=== PATIENT | male | born 1945 | race Caucasian/White ===

== ENCOUNTER 2017-07-15 22:42 | Inpatient (IN) ==
--- NOTE | 2017-07-15 23:15 | Emergency Department Note ---
Disposition Clinical Impression: Unresponsive, Cardiac arrest STEMI (ST elevation myocardial infarction) Qualifiers: Involved coronary artery: unspecified coronary artery Qualified Code(s): I21.3 - ST elevation (STEMI) myocardial infarction of unspecified site Disposition: Admitted As Inpatient Condition: Critical Time of Disposition: 00:31 CPR HPI - General Chief Complaint: ED Cardiac Arrest/CPR Stated Complaint: unresponsive s/p cardiac arrest Time Seen by Provider: 07/15/17 22:48 Source: EMS Nursing Notes Reviewed: Yes Vital Signs Reviewed: Yes - History of Present Illness HPI Narrative: Mr. Swift, 71-year-old male, arise from [facility]. Patient has a history of CABG approximately 3 years ago, 3 vessel stenting in November of this year. Was a previously heavy smoker but quit at the time of his CABG. Patient was in a vehicle with 3 longtime friends. He began going into cardiac arrest. They stop the car and the first bystander nearby was a physician. Patient was pulled from his seat in the vehicle onto the road side and CPR was started, EMS was called. EMS arrived; patient was in ventricular fibrillation without a pulse. Patient was intubated by EMS. ROSC achieved after seeing a round of epinephrine and 2 rounds of defibrillation. He arrives at our facility in sinus tachycardia, unresponsive. - Related Data Allergies Allergy/AdvReac Type Severity Reaction Status Date / Time Unable to Assess Allergy Unverified 07/15/17 22:44 Limitations: ROS unobtainable due to patients medical condition CPR PMH - Past Medical History Medical history: Reports: other Psychiatric history: Reports: other - Social History Smoking Status: Unknown if ever smoked Physical Exam Vital Signs Reviewed General: Patient is unresponsive, intubated. HEENT: No facial asymmetry. Head is normocephalic and atraumatic. PERRLA. Cardiovascular: Heart cortical rate with regular rhythm without clicks, rubs, gallops, or murmurs. No JVD. Vertical midsternal scar well-healed from previous CABG. Carotid, femoral, bilateral radial, posterior tibial pulses all strong and 2/4. Respiratory: ET tube in place. Symmetric chest rise with bilateral breath sounds present, equal, without crackles or rhonchi. No epigastric sounds. Neuro: GCS 3 - measured on arrival with ET tube in place and with no analgesia or sedating medications on board. Psych: Patient's affect is appropriate for situation. Course Course Narrative: Patient arrives GCS 3 with intubation. Only medication on board as epinephrine at that time. 2 placement confirmed by chest x-ray. 2 large-bore IVs placed. EKG concerning for ST elevation in the septal leads. Discussed the patient with on-call interventional cardiology, Dr. Palmer, to whom I [place] the patient's EKG. He agreed to call a code STEMI. Hypothermia protocol initiated. Patient placed on amiodarone drip. He began biting the ET tube; gave him a bolus of 20 mg etomidate as well as 30 mg rocuronium. Patient taken to Histopathologist. Vital Signs Temperature 98.8 F 07/15/17 22:44 Pulse Rate 134 07/15/17 22:44 Respiratory Rate 14 07/15/17 22:44 Blood Pressure 161/114 07/15/17 22:44 O2 Sat by Pulse Oximetry 95 07/15/17 22:44 Temperature 98.8 F 07/15/17 22:44 Pulse Rate 147 07/15/17 23:28 Respiratory Rate 19 07/16/17 01:57 Blood Pressure 84/63 07/16/17 01:57 O2 Sat by Pulse Oximetry 98 07/16/17 01:57 Oxygen Delivery Oxygen Delivery Ventilator Cardiac Arrest/CPR - Lab Data Result diagrams: 07/15/17 23:17 07/15/17 23:17 Lab Results 07/15/17 07/15/17 07/15/17 Range/Units 23:17 23:17 23:17 WBC 9.7 (4.3-11.1) K/mcL RBC 4.93 (4.19-5.50) M/mcL Hgb 13.7 (12.9-16.9) g/dL Hct 43.6 (37.5-50.1) % MCV 88.4 (83.0-100.0) fL MCH 27.8 L (28.0-33.3) pg MCHC 31.4 L (31.6-35.5) g/dL RDW 13.1 (11.5-14.5) % Plt Count 203 (140-400) K/mcL MPV 11.4 (9.4-12.4) fL Immature Gran % 1.6 (0-4) % Seg Neutrophils % 63.8 % Lymphocytes % 26.3 % Monocytes % 6.2 % Eosinophils % 1.3 % Basophils % 0.8 % Neutrophils # 6.2 (1.6-8.9) K/mcL Lymphocytes # 2.5 (0.6-4.6) K/mcL Monocytes # 0.6 (0.0-1.3) K/mcL Eosinophils # 0.1 (0.0-0.6) K/mcL Basophils # 0.1 (0.0-0.2) K/mcL PT 15.0 H (9.4-12.1) Seconds INR 1.4 APTT 38.8 H (26.0-36.0) Seconds Sodium 134 L (136-145) mEq/L Potassium 3.2 L (3.5-4.5) mEq/L Chloride 94 L (98-109) mEq/L Carbon Dioxide 14 L (19-29) mEq/L BUN 14 (8-26) mg/dL Creatinine 1.48 H (0.72-1.25) mg/dL Est GFR ( Amer) 57 L (> 60) Est GFR (Non-Af Amer) 47 L (> 60) BUN/Creatinine Ratio 9 (6-26) Glucose 739 H* (70-99) mg/dL Calculated Osmolality 314 H (280-300) Calcium 7.4 L (8.6-10.8) mg/dL Magnesium 2.1 (1.6-2.6) mg/dL Troponin I (0-0.03) ng/mL Beta-Hydroxybutyric Acd 0.17 (0.02-0.27) mmol/L 07/15/ Range/Units 23:17 WBC (4.3-11.1) K/mcL RBC (4.19-5.50) M/mcL Hgb (12.9-16.9) g/dL Hct (37.5-50.1) % MCV (83.0-100.0) fL MCH (28.0-33.3) pg MCHC (31.6-35.5) g/dL RDW (11.5-14.5) % Plt Count (140-400) K/mcL MPV (9.4-12.4) fL Immature Gran % (0-4) % Seg Neutrophils % % Lymphocytes % % Monocytes % % Eosinophils % % Basophils % % Neutrophils # (1.6-8.9) K/mcL Lymphocytes # (0.6-4.6) K/mcL Monocytes # (0.0-1.3) K/mcL Eosinophils # (0.0-0.6) K/mcL Basophils # (0.0-0.2) K/mcL PT (9.4-12.1) Seconds INR APTT (26.0-36.0) Seconds Sodium (136-145) mEq/L Potassium (3.5-4.5) mEq/L Chloride (98-109) mEq/L Carbon Dioxide (19-29) mEq/L BUN (8-26) mg/dL Creatinine (0.72-1.25) mg/dL Est GFR ( Amer) (> 60) Est GFR (Non-Af Amer) (> 60) BUN/Creatinine Ratio (6-26) Glucose (70-99) mg/dL Calculated Osmolality (280-300) Calcium (8.6-10.8) mg/dL Magnesium (1.6-2.6) mg/dL Troponin I 0.07 H* (0-0.03) ng/mL Beta-Hydroxybutyric Acd (0.02-0.27) mmol/L Critical Care Time Critical Care Time: Yes Total Critical Care Time: 40 Attestation: Critical care performed: Time is exclusive of separately billable procedures. Time includes: direct patient care, patient reassessment, coordination of patient care, interpretation of data (laboratory data, radiology data, and respiratory data), review of patient's medical records, medical consultation and documentation of patient care. Procedures included in critical care time: Procedures excluded from critical care time: Attestation Statement - Attestation Attestation: IMayur MD, personally evaluated this patient and discussed their management with the resident physician. I reviewed the resident's note and agree with the documented findings, medical decision making, and plan of care. 71-year-old male with a prior cardiac history of CABG and coronary artery stents presents to the emergency department by EMS after a cardiac arrest. It was a witnessed arrest at a football game. Patient became unresponsive and reportedly initially had a pulse and then lost his pulse and had bystander CPR initiated. EMS reports on their arrival the patient was in V. fib. He was defibrillated and developed V. tach and then defibrillated again and developed asystole. He was intubated and IV established. He received epinephrine and was defibrillated again and regained a pulse. On arrival in the emergency department the patient has a strong pulse with a regular tachycardia. Good blood pressure and exhibiting some spontaneous respirations and spontaneous movements. On exam there is good breath sounds bilaterally. Heart is tachycardic and regular. Abdomen is soft with positive bowel sounds. No pedal edema noted. Patient received an amiodarone bolus and placed on amiodarone infusion. He received etomidate 20 mg IV and rocuronium 50 mg IV. EKG showed an apparent septal STEMI. EKG was sent to the sharemilker, Dr. Palmer, and he agreed and is taking the patient to Histopathologist. A STEMI alert was activated. Patient also had icebags placed to initiate core cooling. Patient taken from the ED to the cardiac catheter lab.
[2017-07-15 23:26] LABS: Basophils # 0.1 K/mcL (0.0-0.2); Basophils % 0.8 %; Eosinophils # 0.1 K/mcL (0.0-0.6); Eosinophils % 1.3 %; Hematocrit 43.6 % (37.5-50.1); Hemoglobin 13.7 g/dL (12.9-16.9); Immature Granulocytes % 1.6 % (0-4); Lymphocytes # 2.5 K/mcL (0.6-4.6); Lymphocytes % 26.3 %; Mean Corpuscular HGB Conc 31.4 g/dL (31.6-35.5); Mean Corpuscular Hemoglobin 27.8 pg (28.0-33.3); Mean Corpuscular Volume 88.4 fL (83.0-100.0); Mean Platelet Volume 11.4 fL (9.4-12.4); Monocytes # 0.6 K/mcL (0.0-1.3); Monocytes % 6.2 %; Neutrophils # 6.2 K/mcL (1.6-8.9); Platelet Count 203 K/mcL (140-400); Red Blood Count 4.93 M/mcL (4.19-5.50); Red Cell Distribution Width 13.1 % (11.5-14.5); Segmented Neutrophils % 63.8 %
[2017-07-15] MEDS ORDERED: Verapamil 5 MG/2 ML VIAL ONE (23:27)
[2017-07-15] MEDS ORDERED: *HR* Heparin 10,000 UNIT/10 ML VIAL ONE (23:28)
[2017-07-15] MEDS ORDERED: Heparin 1,000 UNITS/500 mL NS 500 ML ONE (23:28)
[2017-07-15] MEDS ORDERED: Nitroglycerin 1,000 MCG/10 ML VIAL IV ONE (23:28)
[2017-07-15] MEDS ORDERED: 0.9 % Sodium Chloride 1,000 ML ONE (23:28)
[2017-07-15 23:31] LABS: INR 1.4
[2017-07-15 23:33] LABS: Activated Partial Thrombo Time 38.8 Seconds (26.0-36.0)
[2017-07-15 23:41] LABS: Calcium 7.4 mg/dL (8.6-10.8); Magnesium 2.1 mg/dL (1.6-2.6); Potassium 3.2 mEq/L (3.5-4.5)
--- NOTE | 2017-07-15 23:42 | Pre-Sedation Evaluation ---
Pre-sedation evaluation - Pre-sedation checklist Date of procedure: 07/15/17 Procedure: [facility] Recent Vitals: Last Vital Signs Temp 98.8 F 07/15/17 22:44 Pulse 147 07/15/17 23:28 Resp 14 07/15/17 23:28 BP 184/151 07/15/17 23:28 Pulse Ox 89 07/15/17 23:28 H&P (including ROS) documented in medical record: Yes Previous reaction to sedatives/anesthetics: No Dietary Status: unknown Possible difficult airway: No ASA Classification *see protocol: CLASS II-Mild systemic disease, E-EMERGENCY- Add to any of the above to indicate emergent Plan of Care: Pt appropriate candidate for procedure/moderate/conscious sedation , Risks/benefits of procedure/sedation discussed w/ patient/family, If not NPO; Risk of intake outweiged by necessity to perform procedure
[2017-07-15] MEDS ORDERED: 0.9 % Sodium Chloride 2,000 ML ONE (23:50)
[2017-07-15] MEDS ORDERED: *HR* Midazolam HCl 5 MG/5 ML VIAL IVP ONE (23:59)
[2017-07-15] MEDS ORDERED: *HR* FentaNYL (PF) 100 MCG/2 ML VIAL ONE (23:59)
[2017-07-16 00:05] LABS: Beta-Hydroxybutyric Acid 0.17 mmol/L (0.02-0.27)
[2017-07-16] MEDS ORDERED: Tirofiban 12.5 MG/250ML 12.5 MG/250 ML BAG ONE (00:23)
[2017-07-16] MEDS ORDERED: Furosemide 40 MG/4 ML VIAL ONE ×2 (00:26→01:10)
[2017-07-16 00:34] LABS: ABG Base Excess -14 mEq/L (-2 to 3); ABG HCO3 18 mEq/L (21-27); ABG Oxygen Saturation 85 % (95-98); ABG PCO2 62 mmHg (35-45); ABG PH 7.06 pH Units (7.32-7.45); ABG PO2 71 mmHg (85-104); ABG TCO2 19 mEq/L (20-26); Blood Gas Modality VC
[2017-07-16] MEDS ORDERED: Heparin 1,000 UNITS/500 mL NS 500 ML ONE (00:34)
[2017-07-16] MEDS ORDERED: Ondansetron 4 MG/2 ML VIAL IVP PRN (00:59)
[2017-07-16] MEDS ORDERED: Amiodarone Premix 360 MG/200 ML BAG IVC ONE (00:59)
[2017-07-16] MEDS ORDERED: D5% in Water 1,000 ML IVC PRN (01:00)
[2017-07-16] MEDS ORDERED: *HR* Dextrose 50 % in Water (Syg) 50 ML SYRINGE IVP PRN (01:00)
[2017-07-16] MEDS ORDERED: Dextrose Gel 15 GM PO PRN ×2 (01:00)
--- NOTE | 2017-07-16 01:04 | Cardiology History & Physical ---
Date of Encounter: 07/18/17 Time of Encounter: 00:00 Assessment and Plan (1) Ventricular fibrillation Current Visit: Yes Status: Acute Concerning for ischemic cause of cardiac arrest. I requested therapeutic hypothermia initiated as reportedly patient unresponsive with low GCS. Emergent LHC. Poor prognosis with prolonged CPR in the field of unknown quality. Patient was not responsive after intubation in the field. Total critical care time: 1.5 hour The assessment and plan as outlined above was discussed with the patient and/ or family members who expressed understanding and agreement. All questions were answered. (2) STEMI (ST elevation myocardial infarction) Current Visit: Yes Status: Acute Emergent LHC. The assessment and plan as outlined above was discussed with the patient and/or family members who expressed understanding and agreement. All questions were answered. Qualifiers: Involved coronary artery: unspecified coronary artery Qualified Code(s): I21.3 - ST elevation (STEMI) myocardial infarction of unspecified site History of Present Illness Chief complaint: VF arrest HPI: Mr. Swift is a 71 year old male w CAD sp 3vsl CABG with reported PCI spring 2015 [facility] with stent x 3, went unresponsive while in car, pulled out of car with veneer taping machine operator being physician and CPR initiated. Friend (works as data modeling architect) reports that patient received 16:30 minutes of CPR prior to defibrillation. VF arrest that was successfully defibrillated. EKG concerning for V1-V2 current of injury with reciprocal changes, STEMI alert activated. Past Med Surg Social Fam HX - Past Medical History Medical history: other Psychiatric history: other - Social History Smoking Status: Unknown if ever smoked Medications and Allergies Atorvastatin Calcium [Lipitor] 80 mg PO DAILY 07/16/17 [History] Clopidogrel [Plavix] 75 mg PO DAILY 07/16/17 [History] Lisinopril [Lisinopril] 2.5 mg PO DAILY 07/16/17 [History] Metoprolol XL (24 HR) Succ [Toprol XL] 25 mg PO DAILY 07/16/17 [History] 3 Allergy/AdvReac Type Severity Reaction Status Date / Time No Known Allergies Allergy Verified 07/16/17 07:15 All Systems Review: A 10-system review of systems was performed and is negative for pertinent findings except as documented above in the HPI. Results 07/18/17 03:10 07/18/17 03:10
[2017-07-16] MEDS ORDERED: *HR* Heparin 5,000 UNIT/ML VIAL IVP PRN ×2 (01:09)
[2017-07-16] MEDS ORDERED: *HR* Midazolam HCl 2 MG/2 ML VIAL ONE (01:29)
[2017-07-16] MEDS ORDERED: *HR* FentaNYL (PF) 100 MCG/2 ML VIAL ONE (01:30)
--- NOTE | 2017-07-16 01:36 | Invasive Diagnostic Lab Proc ---
Name: Simeon Swift Date of Study: 07/15/2017 Date: 1945 Ht: 72.0in Medical Record#: [id number] Age: 71 Wt: 214.95lb Gender: Male BSA: 2.2 Order #: [id number] BMI: 29.11 Physicians Procedure Physician: Joseph Palmer MD, [facility] Referring MD: Referring MD: Staff Name Position Time In Braulio Vela RT (R) Scrub 11:53 PM Renuka Aguilar RN Stars Analytical Lead 11:53 PM Paulina Ayala RN Stars Analytical Lead 11:53 PM Braulio Vela RT (R) Scrub 11:53 PM Indications Indication STEMI Cardiac arrest Procedures Performed Procedure PRQ CARD REVASC VT 1 VSL L HRT ARTERY/VENTRICLE ANGIO IABP INSERTION, PERCUTANEOUS Pre-Procedure Checklist Informed consent is complete signed and on chart. H&P is on chart. ID band is on and ID verified with patient. Patient NPO for procedure The procedure was described for the patient and questions were answered. Blood Pressure: 149/117 ECG is on chart. Plan of Care Patient will tolerate the procedure without complications. Adequate level of comfort will be maintained. Hemodynamics will remain stable Patient will recover from procedure without complications. Respiratory function will be maintained. Cardiac rhythm will remain stable. Patient temperature will be maintained. Patient and/or family have verbalized understanding of the procedure. Patient Education Intravenous Access Time IV Size Location DC'd Fluid/Drip Rate Units RN 11:55 PM 18g 1 1/4" Patent On Arrival Lt Antecubital 0.9NaCl ml/hr 11:55 PM 18g 1 1/4" Patent On Arrival Rt Hand Amiodarone 33.3 ml/hr Allergies Unable to Assess Vital Signs Time BP (mmHg) HR (bpm) O2 Sat. RR (bpm) LOC 11:55 PM 149 / 117 134 82 % 24 1 = Reflexes present/moves spontaneously 11:53 PM 149 / 117 131 82 % 15 11:58 PM 151 / 117 139 85 % 24 12:03 AM 125 / 97 129 92 % 24 12:08 AM 116 / 78 112 87 % 19 12:13 AM 104 / 70 112 86 % 13 12:18 AM 102 / 79 112 87 % 27 12:23 AM 102 / 75 123 89 % 14 12:28 AM 98 / 75 106 89 % 12 12:33 AM 115 / 86 108 89 % 14 12:38 AM 131 / 98 128 91 % 21 12:43 AM 136 / 103 131 89 % 19 12:48 AM 137 / 69 110 87 % 23 12:53 AM 98 / 78 106 87 % 15 12:54 AM 106 / 70 107 88 % 21 12:58 AM 97 / 72 119 89 % 28 01:03 AM 137 / 82 96 90 % 25 Procedural Medications Time Medication Dose Units Method Given By 11:54 PM Oxygen L/min mechanical ventilator Manager Export 11:58 PM Versed 3 mg Intravenous Renuka Aguilar RN 11:59 PM Fentanyl 50 mcg Intravenous Renuka Aguilar RN 12:04 AM Lidocaine 2% 17 ml Subcutaneous Joseph Palmer MD, FACC 12:08 AM Potassium Chloride 100 ml/hr Intravenous Paulina Ayala RN 12:12 AM Heparin 4000 units Intravenous Renuka Aguilar RN 12:26 AM Lasix 20 mg Intravenous Paulina Ayala RN 12:26 AM Aggrastat Bolus: 50 ml Intravenous Renuka Aguilar RN 12:26 AM Aggrastat 12.5mg/250ml 18 ml Intravenous Renuka Aguilar RN 12:27 AM Lasix 20 mg Intravenous Paulina Ayala RN 12:36 AM Sodium Bicarbonate 2 amps Intravenous Paulina Ayala RN 12:44 AM Versed 2 mg Intravenous Paulina Ayala RN 12:44 AM Fentanyl 25 mcg Intravenous Paulina Ayala RN 12:56 AM Plavix 600 mg ng tube Paulina Ayala RN 01:09 AM Lasix 20 mg Intravenous Paulina Ayala RN 01:10 AM Heparin 500 units/hr Intravenous Paulina Ayala RN ASA Classification: CLASS III- Severe systemic disease (i.e. prior AMI, diabetes with vascular complications, morbid obesity) Emergent Procedure: ASA score is assumed Marlen Score Preprocedure Postprocedure Activity 0- Unable to move extremities or lift head Activity 0- Unable to move extremities or lift head Circulation 1- SBP+/= 20 - 50 points of pre-anesthetic level Circulation 1- SBP+/= 20 - 50 points of pre-anesthetic level Consciousness 0- Non-responsive Consciousness 0- Non-responsive O2 Saturation 1- Needs O2 inhalation to maintain O2 saturation of 90% O2 Saturation 1- Needs O2 inhalation to maintain O2 saturation of 90% Respiratory 1- Labored or limited respiration requires airway Respiratory 1- Labored or limited respiration requires airway Total Score 3 Total Score 3 Contrast Agent: Isovue Fluoro Dose: 559 mGy Activated Clotting Time Time Seconds to Clot 12:38 AM 239 Procedure Log Time Note Enter By 11:34 PM CathStat 11:52 PM Vitals capture started with the following parameters, Patient=Adult, Interval=5 min, Initial Hiixjwgi=236 mmHg, Deflation Rate=5 mmHg, Cuff placed on Right Arm 11:53 PM Pt arrived to at 23:53 [email or web address] 11:53 PM Braulio Vela RT (R) Position: Scrub Time in: 23:53 [email or web address] 11:53 PM ZV=822 bpm, HPZZ=617/117 mmhg, SpO2=82.0 %, Resp=15 B/min 11:53 PM Renuka Aguilar RN Position: Stars Analytical Lead Time in: 23:53 [email or web address] 11:53 PM Paulina Ayala RN Position: Stars Analytical Lead Time in: 23:53 [email or web address] 11:53 PM Braulio Vela RT (R) Position: Scrub Time in: 23:53 [email or web address] 11:53 PM Patient charges- Angio tray pack, Navilyst 3mm J, Pulse Oximetry and ACIST tubing and transducer [email or web address] 11:54 PM Case Delayed No [email or web address] 11:54 PM Hair removed from procedure site in holding area using clippers. Bilateral groin prepped with Chloraprep by Renuka Aguilar RN, safety strap applied then patient was draped. Skin intact. [email or web address] 11:54 PM Physician arrived 23:54 ejohnson 11:54 PM ASA Class CLASS III- Severe systemic disease (i.e. prior AMI, diabetes with vascular complications, morbid obesity) [email or web address] 11:54 PM Meet and greet completed [email or web address] 11:54 PM Procedure start 23:54 ejohnson 11:54 PM Time: 23:54 Oxygen on at L/min per mechanical ventilator by Manager Export [email or web address] 11:55 PM Time: 23:54 Patient comfortable and pain free: Yes [email or web address] 11:55 PM Time: 23:55LOC: 1 = Reflexes present/moves spontaneously [email or web address] 11:55 PM Recorded ECG: FY=056 Condition=Condition 1 11:57 PM Pressure channel 1 zeroed. 11:58 PM BY=265 bpm, BZAE=975/117 mmhg, SpO2=85.0 %, Resp=24 B/min 11:59 PM Time: 23:58 Versed 3 mg Intravenous Given by Renuka Aguilar RN ejohnson 11:59 PM Time: 23:59 Fentanyl 50 mcg Intravenous Given by Renuka Aguilar RN [email or web address] 12:02 AM Recorded Pressure: Ao, VY=271, Condition=Condition 1 (Aorta) Ao 136/113/125 12:03 AM PG=274 bpm, JUDT=412/97 mmhg, SpO2=92.0 %, Resp=24 B/min 12:04 AM Time out performed according to hospital policy [email or web address] 12:04 AM Time: 00:04 17 ml Lidocaine 2% to right groin Subcutaneous Given by Joseph Palmer MD, [facility] [email or web address] 12:04 AM Access obtained by percutaneous puncture. 6Fr 10cm Terumo [place] sheath placed in right Femoral artery. [id number] [email or web address] 12:04 AM 5Fr FR 4 catheter inserted over the wire [facility] [email or web address] 12:04 AM SVG to the 1st OM angio performed in multiple views. [email or web address] 12:04 AM RCA angiography performed in multiple views. [email or web address] 12:05 AM Catheter removed [email or web address] 12:05 AM 5Fr IM catheter inserted over the wire [id number] [email or web address] 12:05 AM Left MICHELLE to the LAD angio performed in multiple views. [email or web address] 12:07 AM Lesion found in Proximal RCA. Pre Stenosis: 100 Pre HAL Flow: [email or web address] 12:08 AM CZ=076 bpm, LNPX=042/78 mmhg, SpO2=87.0 %, Resp=19 B/min 12:09 AM Time: 00:08 Potassium Chloride 100 ml/hr Intravenous Given by Paulina Ayala RN [email or web address] 12:12 AM Time: 00:12 Heparin 4000 units Intravenous Given by Renuka Aguilar RN [email or web address] 12:13 AM LM=142 bpm, HIYA=473/70 mmhg, SpO2=86.0 %, Resp=13 B/min 12:15 AM Catheter removed [email or web address] 12:15 AM 5Fr FL 4 catheter inserted over the wire [facility] [email or web address] 12:16 AM LCA angiography performed in multiple views. [email or web address] 12:16 AM Recorded Pressure: Ao, BF=454, Condition=Condition 1 (Aorta) Ao 87/74/80 12:18 AM IM=470 bpm, CMRU=730/79 mmhg, SpO2=87.0 %, Resp=27 B/min 12:19 AM Catheter removed [email or web address] 12:19 AM 6Fr JR 4 [place] Bright-Tip guide catheter was used to cannulate the PCI vessel successfully. reused? No [email or web address] 12:19 AM .014 [place] 190cm guide wire across target lesion- successful. reused? No [email or web address] 12:20 AM Inflation device was opened. [email or web address] 12:21 AM 3.0mm x 8mm Synergy drug-eluting stent across target lesion- successful Lot #[id number] [email or web address] 12:22 AM Stent deployed @ 16 rakel for 23 seconds [email or web address] 12:23 AM QO=790 bpm, AJVJ=489/75 mmhg, SpO2=89.0 %, Resp=14 B/min 12:24 AM Stent delivery system removed intact. [email or web address] 12:24 AM Guide wire removed intact. [email or web address] 12:24 AM Guide catheter removed intact. [email or web address] 12:25 AM 5Fr Pigtail catheter inserted over the wire DNC [email or web address] 12:26 AM Time: 00:26 Lasix 20 mg Intravenous Given by Paulina Ayala RN [email or web address] 12:26 AM Pressure channel 1 zeroed. 12:26 AM Time: 00:26 Aggrastat Bolus: 50 ml Intravenous Given by Renuka Aguilar RN Sanz pump [email or web address] 12:26 AM Recorded Pressure: LV, JN=854, Condition=Condition 1 (Left Ventricle) LV 111/15/23 12:27 AM Recorded Pressure: LV, EI=197, Condition=Condition 1 (Left Ventricle) LV 111/15/31 12:27 AM Time: 00:26 Aggrastat 12.5mg/250ml 18 ml Intravenous Given by Renuka Aguilar RN Sanz pump [email or web address] 12:27 AM Catheter selectively placed in left ventricle [email or web address] 12:27 AM Time: 00:27 Lasix 20 mg Intravenous Given by Paulina Ayala RN [email or web address] 12:28 AM Recorded Pressure: LV, KB=251, Condition=Condition 1 (Left Ventricle) LV 99/12/23 12:28 AM DZ=973 bpm, NIBP=98/75 mmhg, SpO2=89.0 %, Resp=12 B/min 12:28 AM Bolus angiogram of left Ventricle complete: 12 ml/sec for a total of 35 mls [email or web address] 12:29 AM Recorded Pressure: LV, Ao, SF=754, Condition=Condition 1 (Left Ventricle) LV 116/10/17, (Aorta) Ao 120/78/95 12:29 AM Catheter removed [email or web address] 12:30 AM Bolus angiogram of right Femoral complete: 4 ml/sec for a total of 7 mls [email or web address] 12:33 AM EI=377 bpm, VHMF=412/86 mmhg, SpO2=89.0 %, Resp=14 B/min 12:34 AM 8 Fr [place] Balloon Pump IABP catheter inserted into right Femoral artery, 50 cc, *ACC* catheter inserted 1 [email or web address] 12:36 AM Time: 00:36 Sodium Bicarbonate 2 amps Intravenous Given by Paulina Ayala RN [email or web address] 12:38 AM WV=624 bpm, DXSZ=208/98 mmhg, SpO2=91.0 %, Resp=21 B/min 12:38 AM At 00:38 the ACT was 239 seconds. [email or web address] 12:43 AM FF=046 bpm, QXVR=035/103 mmhg, SpO2=89.0 %, Resp=19 B/min 12:44 AM Time: 00:44 Versed 2 mg Intravenous Given by Paulina Ayala RN [email or web address] 12:44 AM Time: 00:44 Fentanyl 25 mcg Intravenous Given by Paulina Ayala RN [email or web address] 12:47 AM IABP Settings: 1:1 ratio [email or web address] 12:48 AM IABP Augmented pressure, mean: 103 [email or web address] 12:48 AM IABP Systemic BP: 105/77 [email or web address] 12:48 AM IABP sheath sut[facility] skin [email or web address] 12:48 AM AI=359 bpm, PQPY=214/69 mmhg, SpO2=87.0 %, Resp=23 B/min 12:53 AM BJ=144 bpm, NIBP=98/78 mmhg, SpO2=87.0 %, Resp=15 B/min 12:53 AM Procedure completed at 00:53 [email or web address] 12[facility]53 AM Sign out completed: Radiation Dose 558.96 mGy Fluoro Time: 10.8 Isovue 370 - 200ml contrast ml given by Joseph Palmer MD, [facility]. Complications: NoneCardiac Rehab Consult needed: YesConfirmed administered medications: Yes [email or web address] 12:53 AM Isovue 370 - 200ml,1 Bottle(s) used. [email or web address] 12:53 AM Sheath left in place to be pulled on floor/holding areaV+Pad [email or web address] 12:53 AM Estimated Blood Loss: minimal [email or web address] 12:54 AM Post Blood Pressure 98/78 [email or web address] 12:54 AM NIBP STAT measurement started. 12:54 AM 00:54 Post Pulses Bilateral DP & PT 1+ [email or web address] 12:54 AM Information taught Cardiac Cath and PCI [email or web address] 12:54 AM RH=504 bpm, EHUG=299/70 mmhg, SpO2=88.0 %, Resp=21 B/min 12:54 AM Education needs Procedure, Plan of Care, and Disease Process [email or web address] 12:54 AM Learning barriers :None [email or web address] 12:54 AM Education Methods Verbal [email or web address] 12:54 AM Education evaluation Unable to do return demonstration [email or web address] 12:55 AM Site status No bleeding/hematoma - Rt Groin as reported by Braulio Vlea RT (R) at 00:54 [email or web address] 12:55 AM Opsite applied [email or web address] 12:55 AM Delay to floor No [email or web address] 12:55 AM Family placed in consult room. [email or web address] 12:55 AM Complications: None [email or web address] 12:55 AM Fluoro Time: 10.8 [email or web address] 12:55 AM Radiation Dose 558.96 mGy [email or web address] 12:57 AM Time: 00:56 Plavix 600 mg ng tube Given by Paulina Ayala RN [email or web address] 12:58 AM ID=589 bpm, NIBP=97/72 mmhg, SpO2=89.0 %, Resp=28 B/min 01:03 AM HR=96 bpm, MSAJ=461/82 mmhg, SpO2=90.0 %, Resp=25 B/min 01:10 AM Time: 01:09 Lasix 20 mg Intravenous Given by Paulina Ayala RN [email or web address] 01:10 AM Time: 01:10 Heparin 500 units/hr Intravenous Given by Paulina Ayala RN Sanz pump [email or web address] 01:11 AM Report given to Marion FISHER Pt taken to ICU Room #11. 01:11 [email or web address] 01:20 AM Patient out of room: 01:23 [email or web address] Complications Complication None None Hemodynamics Pressures Site Systolic/A Wave Diastolic/V Wave Mean AO 136 113 125 AO 87 74 80 LV 111 15 23 LV 111 15 31 LV 99 12 23 LV 116 10 17 AO 120 78 95 Post Procedure Information Blood Pressure: 98/78 mmHg Post procedural instructions were not given Site Checks Time Location Status Staff Sheath In? Note 12:54 AM Rt Groin No bleeding/hematoma Braulio Vela RT (R) Pulses Time Site Pre-Procedure Post-Procedure Note 07/15/2017 11:56:00 PM Bilateral DP 2+ 2+ 12:54:00 AM Bilateral PT 1+ 1+ Updated by RT Chan(R) on 07/16/2017 1:28:48 AM electronically signed on 07/16/2017 1:29:27 AM with status of Final
[2017-07-16] MEDS ORDERED: *HR* Phenylephrine 10 MG/ML VIAL ONE ×2 (01:48→01:50)
[2017-07-16] MEDS: Norepinephrine 4 MG in D5% in Water 250 ML IVC SCH ×3 (02:00→11:50)
--- NOTE | 2017-07-16 02:12 | Event Note ---
Date of Encounter: 07/16/17 Time of Encounter: 02:30 - Cardiology Event Note Patient critically ill sp PCI critically stenosed SVG OM with collaterals to the PDA. EF 10-15% - cardiogenic shock. Full ventilator support for hypoxic respiratory failure. IABP placed. Will consider transfer to tertiary center for Impella/LVAD.
[2017-07-16] MEDS ORDERED: Tirofiban 12.5 MG/250ML 12.5 MG/250 ML BAG IVC SCH (02:15)
[2017-07-16 02:29] LABS: Hematocrit 48.9 % (37.5-50.1); Mean Corpuscular HGB Conc 31.9 g/dL (31.6-35.5); Mean Corpuscular Hemoglobin 27.8 pg (28.0-33.3); Mean Corpuscular Volume 87.2 fL (83.0-100.0); Mean Platelet Volume 11.2 fL (9.4-12.4); Platelet Count 303 K/mcL (140-400); Red Blood Count 5.61 M/mcL (4.19-5.50); Red Cell Distribution Width 13.2 % (11.5-14.5)
[2017-07-16 02:30] LABS: Hemoglobin 15.6 g/dL (12.9-16.9)
[2017-07-16 02:35] LABS: INR 1.2; Prothrombin Time 13.3 Seconds (9.4-12.1)
[2017-07-16 02:41] LABS: Activated Partial Thrombo Time 90.4 Seconds (26.0-36.0)
[2017-07-16 02:41] LABS: VBG HCO3 26 mEq/L (21-27); VBG PCO2 90 mmHg (41-51); VBG PH 7.06 pH Units (7.32-7.42); VBG PO2 41 mmHg (25-50)
[2017-07-16] MEDS ORDERED: *HR* Meperidine 25 MG/ML SYRINGE IVP PRN (02:42)
[2017-07-16 02:46] LABS: Lymphocytes # 4.1 K/mcL (0.6-4.6); Monocytes # 2.9 K/mcL (0.0-1.3); Platelet Estimate Normal (Normal)
[2017-07-16 03:02] LABS: ABG Base Excess -8 mEq/L (-2 to 3); ABG HCO3 20 mEq/L (21-27); ABG Oxygen Saturation 82 % (95-98); ABG PCO2 51 mmHg (35-45); ABG PH 7.21 pH Units (7.32-7.45); ABG PO2 56 mmHg (85-104); ABG TCO2 22 mEq/L (20-26); Blood Gas Modality VC; Blood Gas PEEP 15 cm H2O; Blood Gas Respiration Rate 14; Blood Gas VT 550 cc
[2017-07-16] MEDS: Phenylephrine 10 MG in D5% in Water 250 ML IVC SCH ×2 (03:15→08:17)
--- NOTE | 2017-07-16 03:58 | Internal Medicine Consult Note ---
Date of Encounter: 07/16/17 Time of Encounter: 03:53 - Assessment and Plan (1) Cardiogenic shock Current Visit: Yes Status: Acute Assessment and plan: Patient started on 3 pressors. Continue with dopamine levothyroid and phenylephrine. Titrate to maintain map above 65. IABP managed by cardiology. (2) Hyperglycemia Current Visit: Yes Status: Acute Assessment and plan: Blood glucose 739 on presentation. I will start insulin drip per protocol. (3) STEMI (ST elevation myocardial infarction) Current Visit: Yes Status: Acute Assessment and plan: Status post PCI with stent placement. Undergoing hypothermia protocol. Management per cardiology. Qualifiers: Involved coronary artery: unspecified coronary artery Qualified Code(s): I21.3 - ST elevation (STEMI) myocardial infarction of unspecified site (4) Acute respiratory failure with hypoxia Current Visit: Yes Status: Acute Assessment and plan: Continue ventilator support with AC TV 550ml, PEEP 12. FiO2 100%. I will add paralytic agent to facilitate ventilation. Repeat chest x-ray this morning to evaluate for pulmonary edema, possible hemothorax or pneumothorax given recent CPR and any other possible complications. Repeat ABG. Prior ABG shows combined metabolic and respiratory acidosis improved. The high probability of emergent and significant clinical decompensation with potential impairment of organ function including cardiovascular and respiratory systems required my full attention and presence at the bedside. I spent 40 minutes of critical care time which involved decision making of high complexity to assess, manipulate, and support vital organ system, in order to prevent further life threatening deterioration of the patient's condition. The critical care time was spent in the patient's room and/or its close proximity and involved obtaining updated history and examining the patient, reviewing EKGs, imaging studies and laboratory data, ordering medications and laboratory studies , and reevaluating for clinical response. The time took to perform any procedures was not included in the critical care time quoted above and is billed separately. Internal Medicine - CN: HPI - Data of Consult Patient: new to practice Consult date: 07/16/17 Requesting Physician: Joseph Palmer MD - Consult Narrative Reason for consult: Acute respiratory failure History of present illness: Mr. Swift is a 71 year old male with past medical history significant for coronary artery disease who was brought to the hospital by EMS after having suffered a V. fib cardiac arrest in the field. He was resuscitated by bystanders. He was found to be in ventricular fibrillation EMS arrived and was shocked. In the ED he was noted to have ST elevations in the septal leads. He was taken to [facility] and had a stent placed. He was brought to the ICU intubated started on hypothermia protocol. We will consulted for respiratory failure with profound hypoxemia. He cannot provide any further history, review of systems, family history, social history cannot be obtained due to sedation, patient being intubated. Past Med Surg Social Fam HX - Past Medical History Medical history: other Psychiatric history: other - Social History Smoking Status: Unknown if ever smoked Internal Medicine - CN: Meds 3 Allergy/AdvReac Type Severity Reaction Status Date / Time Unable to Assess Allergy Unverified 07/15/17 22:44 Internal Medicine - CN: Exam - Constitutional Vitals: Temp Pulse Resp BP Pulse Ox 98.8 F 124 24 85/64 87 07/15/17 22:44 07/16/17 03:33 07/16/17 03:33 07/16/17 03:33 07/16/17 03:33 Exam: Intubated, sedated, shivering profusely - Neck Neck exam general surgery: Present: normal inspection, supple, trachea midline - Respiratory Respiratory exam: Present: CTAB. Absent: wheezes - Cardiovascular Cardiovascular exam IM: Present: +S1, +S2, tachycardia. Absent: systolic murmur - GI/Abdominal GI/Abdominal exam IM: Present: soft, no peritoneal signs. Absent: distended - Skin Skin exam IM: Present: dry. Absent: abrasion, erythema Internal Medicine - CN: Reslt - Labs CBC & Chem 7: 07/16/17 04:25 07/16/17 04:25 Labs: Short CBC 07/16/17 Range/Units 02:20 WBC 29.0 H D (4.3-11.1) K/mcL Hgb 15.6 D (12.9-16.9) g/dL Hct 48.9 (37.5-50.1) % Plt Count 303 (140-400) K/mcL Neutrophils # 22.0 H (1.6-8.9) K/mcL - ABG Interpretation ABG results: ABG ABG pH 7.21 pH Units (7.32-7.45) L D 07/16/17 02:57 ABG pCO2 51 mmHg (35-45) H 07/16/17 02:57 ABG pO2 56 mmHg (85-104) L 07/16/17 02:57 ABG O2 Saturation 82 % (95-98) L 07/16/17 02:57 PT/INR, D-dimer PT 13.3 Seconds (9.4-12.1) H 07/16/17 02:20 - Impressions Chest x-ray personally reviewed, ET tube adequately positioned. Cardiomegaly. Pulmonary edema. No infiltrate. Consult Discharge Plan - Plan Referrals: NONE,PCP [Primary Care Provider] -
[2017-07-16 04:39] LABS: Basophils # 0.1 K/mcL (0.0-0.2); Basophils % 0.3 %; Eosinophils % 0.1 %; Hematocrit 45.6 % (37.5-50.1); Hemoglobin 14.8 g/dL (12.9-16.9); Immature Granulocytes % 0.8 % (0-4); Lymphocytes # 1.4 K/mcL (0.6-4.6); Mean Corpuscular HGB Conc 32.5 g/dL (31.6-35.5); Mean Corpuscular Hemoglobin 27.8 pg (28.0-33.3); Mean Corpuscular Volume 85.6 fL (83.0-100.0); Mean Platelet Volume 11.3 fL (9.4-12.4); Monocytes # 0.6 K/mcL (0.0-1.3); Monocytes % 3.2 %; Neutrophils # 17.8 K/mcL (1.6-8.9); Platelet Count 277 K/mcL (140-400); Red Blood Count 5.33 M/mcL (4.19-5.50); Red Cell Distribution Width 13.2 % (11.5-14.5); Segmented Neutrophils % 88.6 %
[2017-07-16] MEDS: Vecuronium 50 MG in 0.9 % Sodium Chloride 150 ML IVC SCH ×2 (04:42→08:18)
[2017-07-16 04:53] LABS: Albumin 3.4 g/dL (3.5-5.0); Albumin/Globulin Ratio 1.1 (1.1-2.2); Bilirubin,Direct 0.2 mg/dL (0.0-0.5); Bilirubin,Indirect 0.3 mg/dL (0.0-1.2); Bilirubin,Total 0.5 mg/dL (0.2-1.2); Calcium 7.8 mg/dL (8.6-10.8); Globulin 3.2 g/dL (2.4-3.5); Magnesium 1.9 mg/dL (1.6-2.6); Potassium 3.7 mEq/L (3.5-4.5); Total Protein 6.6 g/dL (6.0-8.3)
[2017-07-16] MEDS: FentaNYL (PF) 1,000 MCG in 0.9 % Sodium Chloride 80 ML IVC SCH ×2 (05:32→20:45)
[2017-07-16 06:12] LABS: ABG Base Excess -4 mEq/L (-2 to 3); ABG HCO3 22 mEq/L (21-27); ABG Oxygen Saturation 80 % (95-98); ABG PCO2 41 mmHg (35-45); ABG PH 7.34 pH Units (7.32-7.45); ABG PO2 47 mmHg (85-104); ABG TCO2 23 mEq/L (20-26); Blood Gas Modality VC; Blood Gas PEEP 15 cm H2O; Blood Gas Respiration Rate 14; Blood Gas VT 550 cc
[2017-07-16] MEDS: Insulin LISPRO 300 UNITS/3 ML VIAL SQ SCH ×4 (06:30→23:56)
[2017-07-16] MEDS: Famotidine 20 MG/2 ML VIAL IVP SCH ×2 (06:30→18:27)
[2017-07-16] MEDS: Heparin 25,000 UNIT/500 ML D5W 25,000 UNIT/500 ML MLS IVC SCH (08:25)
--- NOTE | 2017-07-16 08:49 | Pulmonology Consult Note ---
<DrewTim de la rosa M - Last Filed: 07/16/17 11:13> Date of Encounter: 07/16/17 Medications and Allergies Atorvastatin Calcium [Lipitor] 80 mg PO DAILY 07/16/17 [History] Clopidogrel [Plavix] 75 mg PO DAILY 07/16/17 [History] Lisinopril [Lisinopril] 2.5 mg PO DAILY 07/16/17 [History] Metoprolol XL (24 HR) Succ [Toprol XL] 25 mg PO DAILY 07/16/17 [History] 3 Allergy/AdvReac Type Severity Reaction Status Date / Time No Known Allergies Allergy Verified 07/16/17 07:15 All Systems: A 10-system review of systems was performed and is negative for pertinent findings except as documented above in the HPI. Physical Examination Vital Signs: Vital Signs, Last 4 Hours Temp Pulse Resp BP Pulse Ox 07/16/17 10:00 103 26 99/65 96 07/16/17 09:15 21 99 07/16/17 09:00 85 26 85/60 96 07/16/17 08:00 99.5 F 93 26 66/54 96 07/16/17 07:34 25 94 Ventilator Settings Ventilator Settings: Ventilator Settings, Last 8 Hours Ventilator Mode A/C Ventilator Mode A/C Ventilator Mode A/C Ventilator Mode A/C Ventilator Mode A/C Ventilator Mode VC+ Ventilator Mode VC+ Ventilator Mode VC+ Ventilator Mode VC+ Ventilator Mode VC+ Ventilator Tidal Volume 550 Setting Ventilator Tidal Volume 550 Setting Ventilator Tidal Volume 550 Setting Ventilator Tidal Volume 550 Setting Ventilator Tidal Volume 550 Setting Ventilator Tidal Volume 550 Setting Ventilator Tidal Volume 550 Setting Ventilator Tidal Volume 550 Setting Ventilator Tidal Volume 550 Setting Ventilator Tidal Volume 550 Setting Ventilator Respiratory Rate 14 Setting Ventilator Respiratory Rate 14 Setting Ventilator Respiratory Rate 14 Setting Ventilator Respiratory Rate 14 Setting Ventilator Respiratory Rate 14 Setting Ventilator Respiratory Rate 14 Setting Ventilator Respiratory Rate 14 Setting Ventilator Respiratory Rate 14 Setting Ventilator Respiratory Rate 14 Setting Ventilator Respiratory Rate 14 Setting Actual Respiratory Rate 26 Actual Respiratory Rate 23 Actual Respiratory Rate 26 Actual Respiratory Rate 26 Actual Respiratory Rate 25 Actual Respiratory Rate 25 Actual Respiratory Rate 23 Positive End Expiratory 14 Pressure Positive End Expiratory 14 Pressure Positive End Expiratory 14 Pressure Positive End Expiratory 14 Pressure Positive End Expiratory 15 Pressure Positive End Expiratory 15 Pressure Positive End Expiratory 15 Pressure Positive End Expiratory 15 Pressure Positive End Expiratory 15 Pressure Positive End Expiratory 15 Pressure Peak Inspiratory Airway 30 Pressure Peak Inspiratory Airway 21 Pressure Peak Inspiratory Airway 23 Pressure Peak Inspiratory Airway 21 Pressure Peak Inspiratory Airway 22 Pressure Peak Inspiratory Airway 25 Pressure Results - Laboratory Findings CBC and BMP: 07/16/17 04:25 07/16/17 04:25 ABG ABG pH 7.38 pH Units (7.32-7.45) 07/16/17 10:16 ABG pCO2 38 mmHg (35-45) 07/16/17 10:16 ABG pO2 60 mmHg (85-104) L 07/16/17 10:16 ABG O2 Saturation 90 % (95-98) L 07/16/17 10:16 PT/INR, D-dimer PT 13.3 Seconds (9.4-12.1) H 07/16/17 02:20 Abnormal lab findings: Abnormal lab results WBC 20.1 K/mcL (4.3-11.1) H 07/16/17 04:25 MCH 27.8 pg (28.0-33.3) L 07/16/17 04:25 Band Neutrophils % 20.0 % (0-4) H 07/16/17 02:20 Neutrophils # 17.8 K/mcL (1.6-8.9) H 07/16/17 04:25 PT 13.3 Seconds (9.4-12.1) H 07/16/17 02:20 APTT 40.1 Seconds (26.0-36.0) H D 07/16/17 06:40 ABG pO2 60 mmHg (85-104) L 07/16/17 10:16 ABG O2 Saturation 90 % (95-98) L 07/16/17 10:16 VBG pH 7.06 pH Units (7.32-7.42) L* 07/16/17 02:33 VBG pCO2 90 mmHg (41-51) H* 07/16/17 02:33 Creatinine 1.46 mg/dL (0.72-1.25) H 07/16/17 04:25 Est GFR ( Amer) 58 (> 60) L 07/16/17 04:25 Est GFR (Non-Af Amer) 48 (> 60) L 07/16/17 04:25 Glucose 238 mg/dL (70-99) H 07/16/17 04:25 POC Glucose 221 (58-89) H 07/16/17 04:14 Calcium 7.8 mg/dL (8.6-10.8) L 07/16/17 04:25 AST 133 Units/L (5-34) H 07/16/17 04:25 ALT 97 Units/L (0-55) H 07/16/17 04:25 Troponin I 0.07 ng/mL (0-0.03) H* 07/15/17 23:17 Albumin 3.4 g/dL (3.5-5.0) L 07/16/17 04:25 - Clinical Findings Intake & Output: Intake & Output 07/15/17 07/16/17 07/16/17 23:59 07:59 15:59 Intake Total 343 / 343 187 / 187 Output Total 2200 / 2200 380 / 380 Balance -1857 / -1857 -193 / -193 Weight 94.7 kg Consult Discharge Plan - Plan Referrals: NONE,PCP [Primary Care Provider] - - Attending Attestation I examined this patient and my medical decision-making was reviewed with the Resident Physician. I agree with the documented findings, disposition and treatment plan as described except to the extent set forth below. Patient seen and examined. Labs, radiology, chart personally reviewed. Agree with resident's history and physical, assessment, plan with following comments: B[employer]TALK ARCHITECT: Patient sedated and respond to stimuli, I have discussed with the nurse earlier this morning regarding hypothermia and I was told patient is following commands with no neurological deficit and he was out the time window to achieve optimal body temperature and for that reason hypothermia was discontinued. Pulmonary: Patient is requiring significant PEEP and FiO2 and slowly lowered FiO2 and PEEP. Patient is in cardiogenic pulmonary edema and diuresis is extremely important as much as blood pressure tolerates. Repeated ABG was done and we will monitor. Patient will need to be on bronchodilators. Cardiovascular: Patient is in cardiogenic shock and management by stonemason. GI: Nutrition per dietary and GI prophylaxis per routine Heme: DVT prophylaxis per routine ID: No obvious source of infection Renal; urine out put and renal funtion reviewed. Monitor kidney function for acute kidney injury Endorcine: blood glucose is monitored Lines: all lines checked and no evidence of infections Skin: skin care to prevent pressure ulcers per nursing routine care Patient is extremely sick and prognosis poor. I spent 45 min of Critical Care time with this patient. It involved decision making of high complexity to assess, manipulate, and support vital organ system failure and/or to prevent further life threatening deterioration of the patient' s condition. The time involved in the performance of separately reportable procedures was not counted toward critical care time. <Kyle Mcginnis - Last Filed: 07/16/17 15:03> Date of Encounter: 07/16/17 Time of Encounter: 07:00 Assessment and Plan (1) Acute respiratory failure with hypoxia Current Visit: Yes Status: Acute - Intubated prior to arrival to ED and pO2 on ABG was noted to be as low as 47. - Likely secondary to cardiogenic pulmonary edema. - Continue diuresis with IV Lasix. - Continue mechanical ventilation support. - Continue close monitoring. (2) Cardiogenic shock Current Visit: Yes Status: Acute - Significant hypotension with BP as low as 62/30 and heart cath found EF 10-15% . - IABP in place and cardiology on board. - Continue dopamine and norepinephrine for pressure support. (3) STEMI (ST elevation myocardial infarction) Current Visit: Yes Status: Acute - EKG in ED showed ST elevations in V1 & V2 with ST depression in V3, V4 and T- wave inversion in V4, V5, V6. - Status post emergent cardiac cath. - Continue aspirin, Plavix, Crestor, heparin drip. Qualifiers: Involved coronary artery: unspecified coronary artery Qualified Code(s): I21.3 - ST elevation (STEMI) myocardial infarction of unspecified site (4) Ventricular fibrillation Current Visit: Yes Status: Acute - V-fib was noted per EMS arrived to the scene of cardiac arrest and patient was successfully defibrillated. (5) Cardiac arrest Current Visit: Yes Status: Acute - Cardiac arrest received CPR and ROSC prior to arrival to ED. History of Present Illness Consult date: 07/16/17 Requesting physician: Joseph Palmer Reason for consult: other (Respiratory failure/cardiogenic shock) Chief complaint: Cardiac arrest/STEMI History of present illness: Mr. Swift is a 71 yo male with PMH of CAD s/p CABG 3 years ago and 3 vessels stented in November 2016. Patient was admitted on 07/16/17 for cardiac arrest and STEMI and critical care/pulmonology is consulted for acute respiratory failure and cardiogenic shock. Patient was seen and examined this morning. Patient is sedated and intubated and no family member at bedside. Therefore much of history was obtained from review of medical records. Per ED note, patient had cardiac arrest while in the car and CPR was initiated by physician nearby at the scene. Patient was found to have V-fib without a pulse upon EMS arrival. Patient was intubated by EMS and ROSC was achieved after one round of epinephrine and two rounds of defibrillation. Patient was found to be unresponsive upon arrival to [facility] ED and EKG suggested STEMI. Patient got emergent cardiac cath which found critically stenosed SVG OM with collaterals to the PDA and EF 10-15% consistent with cardiogenic shock. IABP was placed and patient was put on hypothermia protocol. Patient was on 3 pressors (norepinephrine, dopamine and phenylephrine ) but weaned down to norepinephrine only this morning. Past Med Surg Social Fam HX - Past Medical History Medical history: coronary artery disease Psychiatric history: other - Past Surgical History Surgical History: angioplasty/stent, coronary bypass (CABG) - Social History Smoking Status: Former smoker ROS unobtainable: due to endotracheal tube, due to mental status Physical Examination Vital Signs: Vital Signs, Last 4 Hours Temp Pulse Resp BP Pulse Ox 07/16/17 08:00 99.5 F 93 26 66/54 96 07/16/17 07:34 25 94 07/16/17 07:00 96 26 100/57 92 07/16/17 06:00 97.3 F L 100 24 117/91 87 07/16/17 05:39 25 72/58 91 07/16/17 05:00 97.0 F L 90 20 83/67 90 General appearance: other (Sedated and intubated) Eyes: nonicteric ENT: other (Intubated) Neck: supple Effort: normal Inspection: normal Auscultation: bilateral: clear Cardiovascular: regular rate and rhythm Gastrointestinal: normoactive bowel sounds, soft, non-distended Integumentary: normal Extremities: no edema, cool Ventilator Settings Ventilator Settings: Ventilator Settings, Last 8 Hours Ventilator Mode A/C Ventilator Mode VC+ Ventilator Mode VC+ Ventilator Mode VC+ Ventilator Mode VC+ Ventilator Mode VC+ Ventilator Mode VC+ Ventilator Mode VC+ Ventilator Mode VC+ Ventilator Tidal Volume 550 Setting Ventilator Tidal Volume 550 Setting Ventilator Tidal Volume 550 Setting Ventilator Tidal Volume 550 Setting Ventilator Tidal Volume 550 Setting Ventilator Tidal Volume 550 Setting Ventilator Tidal Volume 550 Setting Ventilator Tidal Volume 550 Setting Ventilator Tidal Volume 550 Setting Ventilator Respiratory Rate 14 Setting Ventilator Respiratory Rate 14 Setting Ventilator Respiratory Rate 14 Setting Ventilator Respiratory Rate 14 Setting Ventilator Respiratory Rate 14 Setting Ventilator Respiratory Rate 14 Setting Ventilator Respiratory Rate 14 Setting Ventilator Respiratory Rate 14 Setting Ventilator Respiratory Rate 14 Setting Actual Respiratory Rate 26 Actual Respiratory Rate 25 Actual Respiratory Rate 25 Actual Respiratory Rate 23 Actual Respiratory Rate 19 Positive End Expiratory 15 Pressure Positive End Expiratory 15 Pressure Positive End Expiratory 15 Pressure Positive End Expiratory 15 Pressure Positive End Expiratory 15 Pressure Positive End Expiratory 15 Pressure Positive End Expiratory 15 Pressure Positive End Expiratory 15 Pressure Positive End Expiratory 12 Pressure Positive End Expiratory 12 Pressure Peak Inspiratory Airway 21 Pressure Peak Inspiratory Airway 23 Pressure Peak Inspiratory Airway 21 Pressure Peak Inspiratory Airway 22 Pressure Peak Inspiratory Airway 25 Pressure Peak Inspiratory Airway 18 Pressure Peak Inspiratory Airway 20 Pressure Results - Laboratory Findings CBC and BMP: 07/16/17 04:25 07/16/17 04:25 ABG ABG pH 7.34 pH Units (7.32-7.45) D 07/16/17 06:07 ABG pCO2 41 mmHg (35-45) 07/16/17 06:07 ABG pO2 47 mmHg (85-104) L* 07/16/17 06:07 ABG O2 Saturation 80 % (95-98) L 07/16/17 06:07 PT/INR, D-dimer PT 13.3 Seconds (9.4-12.1) H 07/16/17 02:20 Abnormal lab findings: Abnormal lab results WBC 20.1 K/mcL (4.3-11.1) H 07/16/17 04:25 MCH 27.8 pg (28.0-33.3) L 07/16/17 04:25 Band Neutrophils % 20.0 % (0-4) H 07/16/17 02:20 Neutrophils # 17.8 K/mcL (1.6-8.9) H 07/16/17 04:25 PT 13.3 Seconds (9.4-12.1) H 07/16/17 02:20 APTT 40.1 Seconds (26.0-36.0) H D 07/16/17 06:40 ABG pO2 47 mmHg (85-104) L* 07/16/17 06:07 ABG O2 Saturation 80 % (95-98) L 07/16/17 06:07 ABG Base Excess -4 mEq/L (-2 to 3) L 07/16/17 06:07 VBG pH 7.06 pH Units (7.32-7.42) L* 07/16/17 02:33 VBG pCO2 90 mmHg (41-51) H* 07/16/17 02:33 Creatinine 1.46 mg/dL (0.72-1.25) H 07/16/17 04:25 Est GFR ( Amer) 58 (> 60) L 07/16/17 04:25 Est GFR (Non-Af Amer) 48 (> 60) L 07/16/17 04:25 Glucose 238 mg/dL (70-99) H 07/16/17 04:25 POC Glucose 221 (58-89) H 07/16/17 04:14 Calcium 7.8 mg/dL (8.6-10.8) L 07/16/17 04:25 AST 133 Units/L (5-34) H 07/16/17 04:25 ALT 97 Units/L (0-55) H 07/16/17 04:25 Troponin I 0.07 ng/mL (0-0.03) H* 07/15/17 23:17 Albumin 3.4 g/dL (3.5-5.0) L 07/16/17 04:25 - Diagnostic Findings Chest x-ray: report reviewed, image reviewed - Clinical Findings Intake & Output: Intake & Output 07/15/17 07/16/17 07/16/17 23:59 07:59 15:59 Intake Total 343 / 343 187 / 187 Output Total 2200 / 2200 380 / 380 Balance -1857 / -1857 -193 / -193 Weight 94.7 kg
[2017-07-16] MEDS: Furosemide 40 MG/4 ML VIAL IVP SCH ×2 (08:53→20:44)
[2017-07-16] MEDS ORDERED: Aspirin 81 MG TAB.CHEW PO SCH (09:00)
[2017-07-16] MEDS: Dexmedetomidine HCl 400 MCG/100 ML MLS IVC SCH ×2 (09:31→20:39)
[2017-07-16 10:20] LABS: ABG Base Excess -2 mEq/L (-2 to 3); ABG HCO3 23 mEq/L (21-27); ABG Oxygen Saturation 90 % (95-98); ABG PCO2 38 mmHg (35-45); ABG PH 7.38 pH Units (7.32-7.45); ABG PO2 60 mmHg (85-104); ABG TCO2 24 mEq/L (20-26); Blood Gas Modality ASSIST CONTROL; Blood Gas PEEP 14 cm H2O; Blood Gas Respiration Rate 14; Blood Gas VT 550 cc
[2017-07-16] MEDS: Aspirin 81 MG TAB.CHEW PO SCH (11:45)
--- NOTE | 2017-07-16 12:00 | Cardiology Progress Note ---
Date of Encounter: 07/16/17 Time of Encounter: 12:15 Assessment and Plan (1) STEMI (ST elevation myocardial infarction) Current Visit: Yes Status: Acute 1. STEMI - post PCI with CHARLES SVG-OM1, patent FUNES to LAD, severe stenosis proximal D1 with small distal distribution, will DC aggrastat, continue heparin , plavix, asprin. 2. Cardiogenic Shock, - on dopamine and Levophed, IABP at 1:1, heart rate low 100s, MAP improved with switch to 1:2, will reassess if heart rate less than 90 , continue to titrate pressors as needed, add dig .5 mg IV x 1. monitor heart rate response. Reviewed cath film and echo, LV severley impaired, EF 10%. Overall prognosis is dismal. Discussed with family at bedside, they understand and accept poor expectations. 3. CAD - severe three vessel starla, post CABG 4. Respiratory failure,on Vent. Qualifiers: Involved coronary artery: unspecified coronary artery Qualified Code(s): I21.3 - ST elevation (STEMI) myocardial infarction of unspecified site (2) Cardiogenic shock Current Visit: Yes Status: Acute Discussion w patient/family: The assessment and plan as outlined above was discussed with the patient and/or family members who expressed understanding and agreement. All questions were answered. Thank you for involving us in the care of your patient. Please call with any questions. Subjective Principal diagnosis: Acute [place] Interval history: PT admitted through ER with STEMI, cardiac arrest with CPR, underwent emergency LHC with PCI and CHARLES to SVG to OM1, IABP for cardiogenic shock. Pt sedated, intubated, with IABP, does open eyes to commands. Objective Vital Signs, Last 4 Hours Temp Pulse Resp BP Pulse Ox 07/16/17 11:52 22 97 07/16/17 11:00 109 26 98/65 96 07/16/17 10:00 103 26 99/65 96 07/16/17 09:15 21 99 07/16/17 09:00 85 26 85/60 96 07/16/17 08:00 99.5 F 93 26 66/54 96 General: Other (inbated, sedated, on vent with IABP) HEENT: Atraumatic Neck: No JVD Cardiac: Reg Rate and Rhythm, Normal S1 and S2, Other Lungs: Other (scattered rhonci throughtout, vent dependent) Neuro: Other (sedated) Skin: No rashes noted on visualized skin Extremities: No Cyanosis, No Edema Results 07/16/17 04:25 07/16/17 04:25 Lab Results 07/16/17 07/16/17 07/16/17 02:20 02:20 04:25 WBC 29.0 H D 20.1 H Hgb 15.6 D 14.8 Hct 48.9 45.6 Plt Count 303 277 INR 1.2 APTT 90.4 H D Sodium Potassium Chloride Carbon Dioxide BUN Creatinine Glucose Calcium Magnesium Total Bilirubin AST ALT Alkaline Phosphatase 07/16/17 07/16/17 04:25 06:40 WBC Hgb Hct Plt Count INR APTT 40.1 H D Sodium 139 Potassium 3.7 Chloride 104 Carbon Dioxide 23 BUN 17 Creatinine 1.46 H Glucose 238 H Calcium 7.8 L Magnesium 1.9 Total Bilirubin 0.5 AST 133 H ALT 97 H Alkaline Phosphatase 83 Consult Discharge Plan - Plan Referrals: NONE,PCP [Primary Care Provider] -
[2017-07-16] MEDS ORDERED: *HR* Digoxin 0.5 MG/2 ML AMPUL IVP ONE (12:53)
[2017-07-16] MEDS: Amiodarone Premix 360 MG/200 ML BAG IVC SCH (13:41)
[2017-07-16 15:05] LABS: ABG Base Excess 0 mEq/L (-2 to 3); ABG HCO3 25 mEq/L (21-27); ABG Oxygen Saturation 98 % (95-98); ABG PCO2 42 mmHg (35-45); ABG PH 7.39 pH Units (7.32-7.45); ABG PO2 104 mmHg (85-104); ABG TCO2 27 mEq/L (20-26); Blood Gas Modality ASSIST CONTROL; Blood Gas PEEP 12 cm H2O; Blood Gas Respiration Rate 14; Blood Gas VT 550 cc
[2017-07-16] MEDS: Norepinephrine 8 MG in D5% in Water 250 ML IVC SCH ×2 (15:18→22:24)
[2017-07-16] MEDS: Ipratropium/Albuterol Neb 3 ML IH SCH ×2 (15:26→21:21)
--- NOTE | 2017-07-16 15:26 | Internal Med Progress Note ---
Date of Encounter: 07/16/17 Time of Encounter: 15:26 - Assessment and plan (1) STEMI (ST elevation myocardial infarction) Current Visit: Yes Status: Acute Qualifiers: Involved coronary artery: unspecified coronary artery Qualified Code(s): I21.3 - ST elevation (STEMI) myocardial infarction of unspecified site (2) Ventricular fibrillation Current Visit: Yes Status: Acute (3) Cardiac arrest Current Visit: Yes Status: Acute (4) Hyperglycemia Current Visit: Yes Status: Acute - Time Spent With Patient Patient had leukocytosis with left shift, will check Blood culture 2 check urinalysis, chest x-ray reviewed which was negative, blood sugar under good control. Glucose monitoring patient condition. Consider tube feeding. Check electrolytes CBC magnesium and phosphorus next a.m. 25 - 35 minutes - Subjective Interval history: Patient is chronically on the vent. Patient is responding to command. He is in no distress - Constitutional Vitals: Temp Pulse Resp BP Pulse Ox 98.7 F 76 23 90/69 98 07/16/17 12:00 07/16/17 15:09 07/16/17 15:00 07/16/17 15:00 07/16/17 15:00 - Head Head exam: Present: atraumatic, normocephalic - Neck Neck exam general surgery: Present: supple, trachea midline. Absent: lymphadenopathy - Respiratory Respiratory exam: Present: CTAB. Absent: accessory muscle use, rales, rhonchi, wheezes - Cardiovascular Cardiovascular exam: Present: diastolic murmur, gallop, +S2. Absent: rubs, systolic murmur - GI/Abdominal GI/Abdominal exam: Present: normal bowel sounds, soft, no peritoneal signs. Absent: distended, tenderness - Extremities Exam Extremities exam: Present: warm, radial pulses palpable and symmetrical. Absent : calf tenderness, cyanotic, pedal edema - Neurological Exam Additional comments: Nothing all 4 extremities - Expanded Neurological Exam Neurological exam expanded: Absent: tremor Internal Medicine: Result - Labs CBC & Chem 7: 07/16/17 04:25 07/16/17 04:25 Labs: Short CBC 07/16/17 07/16/17 Range/Units 02:20 04:25 WBC 29.0 H D 20.1 H (4.3-11.1) K/mcL Hgb 15.6 D 14.8 (12.9-16.9) g/dL Hct 48.9 45.6 (37.5-50.1) % Plt Count 303 277 (140-400) K/mcL Neutrophils # 22.0 H 17.8 H (1.6-8.9) K/mcL BMP 07/16/17 04:25 Sodium 139 Potassium 3.7 Chloride 104 Carbon Dioxide 23 BUN 17 Creatinine 1.46 H Glucose 238 H Calcium 7.8 L Liver Function 07/16/17 Range/Units 04:25 Total Bilirubin 0.5 (0.2-1.2) mg/dL Direct Bilirubin 0.2 (0.0-0.5) mg/dL AST 133 H (5-34) Units/L ALT 97 H (0-55) Units/L Alkaline Phosphatase 83 (38-126) Units/L Albumin 3.4 L (3.5-5.0) g/dL - ABG Interpretation ABG results: ABG ABG pH 7.39 pH Units (7.32-7.45) 07/16/17 14:58 ABG pCO2 42 mmHg (35-45) 07/16/17 14:58 ABG pO2 104 mmHg (85-104) D 07/16/17 14:58 ABG O2 Saturation 98 % (95-98) 07/16/17 14:58 PT/INR, D-dimer PT 13.3 Seconds (9.4-12.1) H 07/16/17 02:20 - Impressions Impressions Chest X-Ray 07/16/17 03:46 IMPRESSION: Mild congestive changes stable from prior exam. D/ / Armen Urban MD / Armen Urban MD Interpreting Provider: Armen Urban MD Consult Discharge Plan - Plan Referrals: NONE,PCP [Primary Care Provider] -
[2017-07-16 16:17] LABS: Bilirubin,Urine Negative (Negative); Blood,Urine Large (Negative); Clarity,Urine Clear (Clear); Color,Urine Yellow (Yellow); Glucose,Urine (UA) Normal (Normal); Ketones,Urine Negative (Negative); Leukocyte Esterase,Urine Negative (Negative); Nitrite,Urine Negative (Negative); Protein,Urine Trace mg/dL (Neg-Trace); Specific Gravity,Urine 1.029 (1.010-1.025); Urobilinogen,Urine Normal (Normal)
[2017-07-16 16:18] LABS: Bacteria,Urine None Seen per hpf (None-Few); Hyaline Casts,Urine Few per lpf (None-Few); RBC,Urine 50-100 per hpf (0-3); Squamous Epithelial Cell,Urine Many per lpf (None-Few); WBC,Urine 0-3 per hpf (0-3)
[2017-07-16] MEDS ORDERED: *HR* Rocuronium Bromide 50 MG/5 ML VIAL IVC ONE (17:26)
[2017-07-16] MEDS ORDERED: *HR* Amiodarone 150 MG/3 ML VIAL IVPB ONE (17:26)
[2017-07-16] MEDS ORDERED: *HR* Amiodarone Premix 360 MG/200 ML BAG IVC ONE (17:26)
[2017-07-17] MEDS: Amiodarone Premix 360 MG/200 ML BAG IVC SCH ×3 (01:45→23:30)
[2017-07-17] MEDS: Ipratropium/Albuterol Neb 3 ML IH SCH ×4 (03:22→22:29)
[2017-07-17 05:04] LABS: Basophils # 0.1 K/mcL (0.0-0.2); Basophils % 0.3 %; Hematocrit 47.8 % (37.5-50.1); Hemoglobin 16.2 g/dL (12.9-16.9); Immature Granulocytes % 0.3 % (0-4); Lymphocytes # 1.5 K/mcL (0.6-4.6); Lymphocytes % 7.9 %; Mean Corpuscular HGB Conc 33.9 g/dL (31.6-35.5); Mean Corpuscular Hemoglobin 28.4 pg (28.0-33.3); Mean Corpuscular Volume 83.7 fL (83.0-100.0); Mean Platelet Volume 11.3 fL (9.4-12.4); Monocytes # 1.1 K/mcL (0.0-1.3); Monocytes % 5.5 %; Neutrophils # 16.8 K/mcL (1.6-8.9); Platelet Count 198 K/mcL (140-400); Red Blood Count 5.71 M/mcL (4.19-5.50); Red Cell Distribution Width 13.4 % (11.5-14.5)
[2017-07-17 05:15] LABS: BUN/Creatinine Ratio 13 (6-26); Blood Urea Nitrogen 15 mg/dL (8-26); Carbon Dioxide 23 mEq/L (19-29); Chloride 101 mEq/L (98-109); Glucose 130 mg/dL (70-99); Magnesium 1.5 mg/dL (1.6-2.6); Osmolality,Calculated 287 (280-300); Phosphorous 2.1 mg/dL (2.3-4.7); Potassium 3.5 mEq/L (3.5-4.5); Sodium 137 mEq/L (136-145); eGFR For African Americans > 60 (> 60); eGFR For Non-African Americans 60 (> 60)
[2017-07-17] MEDS: Insulin LISPRO 300 UNITS/3 ML VIAL SQ SCH ×3 (05:33→18:04)
[2017-07-17] MEDS: Norepinephrine 8 MG in D5% in Water 250 ML IVC SCH (05:52)
[2017-07-17] MEDS ORDERED: Potassium Phosphate 44 MEQ in 0.9 % Sodium Chloride 250 ML IVPB ONE (05:55)
[2017-07-17] MEDS: Famotidine 20 MG/2 ML VIAL IVP SCH ×2 (06:17→16:58)
[2017-07-17] MEDS: Aspirin 81 MG TAB.CHEW PO SCH (08:20)
[2017-07-17] MEDS: Furosemide 40 MG/4 ML VIAL IVP SCH ×2 (08:21→20:50)
[2017-07-17] MEDS: Heparin 25,000 UNIT/500 ML D5W 25,000 UNIT/500 ML MLS IVC SCH (08:31)
--- NOTE | 2017-07-17 08:56 | Pulmonology Progress Note ---
<Kyle Mcginnis - Last Filed: 07/17/17 10:18> Date of Encounter: 07/17/17 Time of Encounter: 07:15 Assessment and Plan (1) Acute respiratory failure with hypoxia Current Visit: Yes Status: Acute - Intubated prior to arrival to ED and pO2 on ABG was noted to be as low as 47. - Likely secondary to cardiogenic pulmonary edema. - Improves as ABG today pH 7.39, pCO2 42, pO2 104 and HCO3 25. Ventilation setting was adjusted by Dr. Kennedy this morning accordingly. - Continue diuresis with IV Lasix. - Continue mechanical ventilation support. - Continue close monitoring. (2) Cardiogenic shock Current Visit: Yes Status: Acute - Significant hypotension with BP as low as 62/30 and heart cath found EF 10-15% . - Related to cardiac arrest from V-fib and associated STEMI. - IABP in place and cardiology on board. Patient may need transfer to tertiary center for [facility]/LVAD. Appreciate cardiology input. - Continue dopamine and norepinephrine for pressure support. (3) STEMI (ST elevation myocardial infarction) Current Visit: Yes Status: Acute - EKG in ED showed ST elevations in V1 & V2 with ST depression in V3, V4 and T- wave inversion in V4, V5, V6. - Status post emergent cardiac cath. - Continue aspirin, Plavix, Crestor, heparin drip. Qualifiers: Involved coronary artery: unspecified coronary artery Qualified Code(s): I21.3 - ST elevation (STEMI) myocardial infarction of unspecified site (4) Ventricular fibrillation Current Visit: Yes Status: Acute - V-fib was noted per EMS arrived to the scene of cardiac arrest and patient was successfully defibrillated. (5) Cardiac arrest Current Visit: Yes Status: Acute - Cardiac arrest received CPR and ROSC prior to arrival to ED. Subjective Principal diagnosis: Acute NC Interval history: Patient was seen and examined this morning. Patient is still intubated but appears to be alert and orient. Patient is able to follow simple commands and shook his head while asking if he has any chest pain or other pain. Objective PUL Vital signs: Last Vital Signs Temp 98.8 F 07/17/17 07:42 Pulse 81 07/17/17 08:01 Resp 16 07/17/17 08:01 BP 105/58 07/17/17 08:01 Pulse Ox 98 07/17/17 08:01 General appearance: no acute distress, alert Eyes: nonicteric ENT: other (Intubated) Effort: normal Auscultation: bilateral: clear Cardiovascular: regular rate and rhythm Gastrointestinal: normoactive bowel sounds, soft, non-tender Integumentary: normal Extremities: no cyanosis, no edema Musculoskeletal: no deformities Ventilator Settings Ventilator Settings: Ventilator Settings, Last 8 Hours Ventilator Mode A/C Ventilator Mode A/C Ventilator Mode VC+ Ventilator Mode A/C Ventilator Mode A/C Ventilator Mode A/C Ventilator Mode A/C Ventilator Mode A/C Ventilator Tidal Volume 550 Setting Ventilator Tidal Volume 550 Setting Ventilator Tidal Volume 550 Setting Ventilator Tidal Volume 550 Setting Ventilator Tidal Volume 550 Setting Ventilator Tidal Volume 550 Setting Ventilator Tidal Volume 550 Setting Ventilator Tidal Volume 550 Setting Ventilator Respiratory Rate 14 Setting Ventilator Respiratory Rate 14 Setting Ventilator Respiratory Rate 14 Setting Ventilator Respiratory Rate 14 Setting Ventilator Respiratory Rate 14 Setting Ventilator Respiratory Rate 14 Setting Ventilator Respiratory Rate 14 Setting Ventilator Respiratory Rate 14 Setting Actual Respiratory Rate 17 Actual Respiratory Rate 17 Actual Respiratory Rate 16 Actual Respiratory Rate 18 Actual Respiratory Rate 19 Actual Respiratory Rate 19 Positive End Expiratory 5 Pressure Positive End Expiratory 5 Pressure Positive End Expiratory 5 Pressure Positive End Expiratory 8 Pressure Positive End Expiratory 8 Pressure Positive End Expiratory 8 Pressure Positive End Expiratory 8 Pressure Positive End Expiratory 8 Pressure Peak Inspiratory Airway 18 Pressure Peak Inspiratory Airway 18 Pressure Peak Inspiratory Airway 18 Pressure Peak Inspiratory Airway 20 Pressure Peak Inspiratory Airway 18 Pressure Peak Inspiratory Airway 25 Pressure Results - Laboratory Findings CBC and BMP: 07/17/17 04:48 07/17/17 04:48 ABG ABG pH 7.39 pH Units (7.32-7.45) 07/16/17 14:58 ABG pCO2 42 mmHg (35-45) 07/16/17 14:58 ABG pO2 104 mmHg (85-104) D 07/16/17 14:58 ABG O2 Saturation 98 % (95-98) 07/16/17 14:58 PT/INR, D-dimer PT 13.3 Seconds (9.4-12.1) H 07/16/17 02:20 Abnormal lab findings: Abnormal lab results WBC 19.6 K/mcL (4.3-11.1) H 07/17/17 04:48 RBC 5.71 M/mcL (4.19-5.50) H 07/17/17 04:48 Band Neutrophils % 20.0 % (0-4) H 07/16/17 02:20 Neutrophils # 16.8 K/mcL (1.6-8.9) H 07/17/17 04:48 PT 13.3 Seconds (9.4-12.1) H 07/16/17 02:20 APTT 68.7 Seconds (26.0-36.0) H 07/16/17 22:18 ABG Total CO2 27 mEq/L (20-26) H 07/16/17 14:58 VBG pH 7.06 pH Units (7.32-7.42) L* 07/16/17 02:33 VBG pCO2 90 mmHg (41-51) H* 07/16/17 02:33 Glucose 130 mg/dL (70-99) H 07/17/17 04:48 POC Glucose 129 (58-89) H 07/16/17 23:47 Calcium 8.0 mg/dL (8.6-10.8) L 07/17/17 04:48 Phosphorus 2.1 mg/dL (2.3-4.7) L 07/17/17 04:48 Magnesium 1.5 mg/dL (1.6-2.6) L 07/17/17 04:48 AST 133 Units/L (5-34) H 07/16/17 04:25 ALT 97 Units/L (0-55) H 07/16/17 04:25 Troponin I 0.07 ng/mL (0-0.03) H* 07/15/17 23:17 B-Natriuretic Peptide 1058 pg/mL (0-100) H 07/17/17 04:48 Albumin 3.4 g/dL (3.5-5.0) L 07/16/17 04:25 Ur Specific [place] 1.029 (1.010-1.025) H 07/16/17 15:58 Urine Blood Large (Negative) H 07/16/17 15:58 Urine Microscopic RBC 50-100 per hpf (0-3) H 07/16/17 15:58 Ur Squamous Epith Cells Many per lpf (None-Few) H 07/16/17 15:58 - Microbiology Findings Microbiology Findings: Microbiology, Last 48 Hours 07/16/17 17:51 Sputum Culture - Preliminary Sputum - Diagnostic Findings Chest x-ray: report reviewed, image reviewed - Clinical Findings Intake & Output: Intake & Output 07/16/17 07/17/17 07/17/17 23:59 07:59 15:59 Intake Total 1043 / 1043 740 / 740 160 / 160 Output Total 1950 / 1950 600 / 600 Balance -907 / -907 140 / 140 160 / 160 Consult Discharge Plan - Plan Referrals: NONE,PCP [Primary Care Provider] - <Tim Kennedy M - Last Filed: 07/17/17 12:47> Date of Encounter: 07/17/17 Objective PUL Vital signs: Last Vital Signs Temp 97.7 F 07/17/17 11:05 Pulse 88 07/17/17 12:16 Resp 17 07/17/17 12:16 BP 89/55 07/17/17 12:16 Pulse Ox 95 07/17/17 12:16 Ventilator Settings Ventilator Settings: Ventilator Settings, Last 8 Hours Ventilator Mode A/C Ventilator Mode A/C Ventilator Mode A/C Ventilator Mode A/C Ventilator Mode A/C Ventilator Mode A/C Ventilator Mode A/C Ventilator Mode A/C Ventilator Mode VC+ Ventilator Mode A/C Ventilator Tidal Volume 550 Setting Ventilator Tidal Volume 550 Setting Ventilator Tidal Volume 550 Setting Ventilator Tidal Volume 550 Setting Ventilator Tidal Volume 550 Setting Ventilator Tidal Volume 550 Setting Ventilator Tidal Volume 550 Setting Ventilator Tidal Volume 550 Setting Ventilator Tidal Volume 550 Setting Ventilator Tidal Volume 550 Setting Ventilator Respiratory Rate 14 Setting Ventilator Respiratory Rate 14 Setting Ventilator Respiratory Rate 14 Setting Ventilator Respiratory Rate 14 Setting Ventilator Respiratory Rate 14 Setting Ventilator Respiratory Rate 14 Setting Ventilator Respiratory Rate 14 Setting Ventilator Respiratory Rate 14 Setting Ventilator Respiratory Rate 14 Setting Ventilator Respiratory Rate 14 Setting Actual Respiratory Rate 14 Actual Respiratory Rate 14 Actual Respiratory Rate 14 Actual Respiratory Rate 14 Actual Respiratory Rate 16 Actual Respiratory Rate 15 Actual Respiratory Rate 17 Actual Respiratory Rate 17 Actual Respiratory Rate 16 Actual Respiratory Rate 18 Positive End Expiratory 5 Pressure Positive End Expiratory 5 Pressure Positive End Expiratory 5 Pressure Positive End Expiratory 5 Pressure Positive End Expiratory 5 Pressure Positive End Expiratory 5 Pressure Positive End Expiratory 5 Pressure Positive End Expiratory 5 Pressure Positive End Expiratory 5 Pressure Positive End Expiratory 8 Pressure Peak Inspiratory Airway 19 Pressure Peak Inspiratory Airway 22 Pressure Peak Inspiratory Airway 19 Pressure Peak Inspiratory Airway 21 Pressure Peak Inspiratory Airway 21 Pressure Peak Inspiratory Airway 21 Pressure Peak Inspiratory Airway 18 Pressure Peak Inspiratory Airway 18 Pressure Peak Inspiratory Airway 18 Pressure Peak Inspiratory Airway 20 Pressure Results - Laboratory Findings CBC and BMP: 07/17/17 04:48 07/17/17 04:48 ABG ABG pH 7.39 pH Units (7.32-7.45) 07/16/17 14:58 ABG pCO2 42 mmHg (35-45) 07/16/17 14:58 ABG pO2 104 mmHg (85-104) D 07/16/17 14:58 ABG O2 Saturation 98 % (95-98) 07/16/17 14:58 PT/INR, D-dimer PT 13.3 Seconds (9.4-12.1) H 07/16/17 02:20 Abnormal lab findings: Abnormal lab results WBC 19.6 K/mcL (4.3-11.1) H 07/17/17 04:48 RBC 5.71 M/mcL (4.19-5.50) H 07/17/17 04:48 Band Neutrophils % 20.0 % (0-4) H 07/16/17 02:20 Neutrophils # 16.8 K/mcL (1.6-8.9) H 07/17/17 04:48 PT 13.3 Seconds (9.4-12.1) H 07/16/17 02:20 APTT 68.7 Seconds (26.0-36.0) H 07/16/17 22:18 ABG Total CO2 27 mEq/L (20-26) H 07/16/17 14:58 VBG pH 7.06 pH Units (7.32-7.42) L* 07/16/17 02:33 VBG pCO2 90 mmHg (41-51) H* 07/16/17 02:33 Glucose 130 mg/dL (70-99) H 07/17/17 04:48 POC Glucose 124 (58-89) H 07/17/17 11:22 Calcium 8.0 mg/dL (8.6-10.8) L 07/17/17 04:48 Phosphorus 2.1 mg/dL (2.3-4.7) L 07/17/17 04:48 Magnesium 1.5 mg/dL (1.6-2.6) L 07/17/17 04:48 AST 133 Units/L (5-34) H 07/16/17 04:25 ALT 97 Units/L (0-55) H 07/16/17 04:25 Troponin I 0.07 ng/mL (0-0.03) H* 07/15/17 23:17 B-Natriuretic Peptide 1058 pg/mL (0-100) H 07/17/17 04:48 Albumin 3.4 g/dL (3.5-5.0) L 07/16/17 04:25 Ur Specific [place] 1.029 (1.010-1.025) H 07/16/17 15:58 Urine Blood Large (Negative) H 07/16/17 15:58 Urine Microscopic RBC 50-100 per hpf (0-3) H 07/16/17 15:58 Ur Squamous Epith Cells Many per lpf (None-Few) H 07/16/17 15:58 - Microbiology Findings Microbiology Findings: Microbiology, Last 48 Hours 07/16/17 17:51 Sputum Culture - Preliminary Sputum - Clinical Findings Intake & Output: Intake & Output 07/16/17 07/17/17 07/17/17 23:59 07:59 15:59 Intake Total 1043 / 1043 740 / 740 510 / 510 Output Total 1950 / 1950 600 / 600 1600 / 1600 Balance -907 / -907 140 / 140 -1090 / -1090 - Attending Attestation I examined this patient and my medical decision-making was reviewed with the Resident Physician. I agree with the documented findings, disposition and treatment plan as described except to the extent set forth below. Patient seen and examined. Labs, radiology, chart personally reviewed. Agree with resident's history and physical, assessment, plan with following comments: [employer]: Patient responded to commands, patient is sedated for the vent synchrony Pulmonary: Decreased PEEP and FiO2 and patient is able to maintain his oxygen saturation. Reviewed chest x-ray with evidence some improvement to my reading and patient responding to diuresis. Once hemodynamically stable from the cardiac standpoint, then patient will have a spontaneous breathing trial. Cardiovascular: unstable. Cardiology team is managing his cardiovascular disease in his cardiogenic shock. GI: Nutrition per dietary and GI prophylaxis per routine Heme: DVT prophylaxis per routine ID: I doubt patient has infection and. Azithromycin, this patient was down aspiration will be in the differential diagnosis, however chest x-ray does not indicate that and Zosyn can be stopped in next 24 hours if no changes. Renal; urine out put and renal funtion reviewed Endorcine: blood glucose is monitored Lines: all lines checked and no evidence of infections Skin: skin care to prevent pressure ulcers per nursing routine care Discussed with the family at the bedside I spent 32 min of Critical Care time with this patient. It involved decision making of high complexity to assess, manipulate, and support vital organ system failure and/or to prevent further life threatening deterioration of the patient' s condition. The time involved in the performance of separately reportable procedures was not counted toward critical care time.
[2017-07-17] MEDS: Dexmedetomidine HCl 400 MCG/100 ML MLS IVC SCH (11:50)
[2017-07-17] MEDS ORDERED: Azithromycin 500 MG in D5% in Water 250 ML IVPB SCH (12:00)
--- NOTE | 2017-07-17 12:01 | Internal Med Progress Note ---
Date of Encounter: 07/17/17 Time of Encounter: 11:30 - Assessment and plan (1) STEMI (ST elevation myocardial infarction) Current Visit: Yes Status: Acute Qualifiers: Involved coronary artery: unspecified coronary artery Qualified Code(s): I21.3 - ST elevation (STEMI) myocardial infarction of unspecified site (2) Ventricular fibrillation Current Visit: Yes Status: Acute (3) Cardiac arrest Current Visit: Yes Status: Acute (4) Hyperglycemia Current Visit: Yes Status: Acute (5) Bronchitis after surgery Current Visit: Yes Status: Acute (6) Hypophosphatemia Current Visit: Yes Status: Acute (7) Hypomagnesemia Current Visit: Yes Status: Acute - Time Spent With Patient Replace electrolytes per protocol. His sputum culture reviewed, patient had low -grade fever, patient is feeling warm had diaphoresis, patient had persistent leukocytosis. We will cover patient empirically for possible bronchitis pneumonia, plan discussed with family at bedside. Discussed with critical care team, critical care team will follow up during IC course. Discussed with pulmonary, case signed off to pulmonary team, please call us as needed Greater than 35 minutes - Subjective Interval history: Patient is currently on the vent. Patient is responding to command. Patient is feeling warm, had low-grade fever last night, sputum Gram stain is positive for gram-positive cocci - Constitutional Vitals: Temp Pulse Resp BP Pulse Ox 97.7 F 102 15 97/54 95 07/17/17 11:05 07/17/17 11:05 07/17/17 12:00 07/17/17 11:05 07/17/17 12:00 - Head Head exam: Present: atraumatic, normocephalic - Eye Eye exam: Present: conjuntiva pink, sclera anicteric - Neck Neck exam general surgery: Present: supple, trachea midline. Absent: lymphadenopathy - Respiratory Respiratory exam: Present: decreased breath sounds, rales. Absent: accessory muscle use, rhonchi, wheezes - Cardiovascular Cardiovascular exam: Present: diastolic murmur, RRR, +S1, +S2, systolic murmur. Absent: gallop, rubs - GI/Abdominal GI/Abdominal exam: Present: normal bowel sounds, soft, no peritoneal signs. Absent: distended, tenderness - Extremities Exam Extremities exam: Present: warm, radial pulses palpable and symmetrical. Absent : calf tenderness, cyanotic, pedal edema Internal Medicine: Result - Labs CBC & Chem 7: 07/17/17 04:48 07/17/17 04:48 Labs: Short CBC 07/17/17 Range/Units 04:48 WBC 19.6 H (4.3-11.1) K/mcL Hgb 16.2 (12.9-16.9) g/dL Hct 47.8 (37.5-50.1) % Plt Count 198 (140-400) K/mcL Neutrophils # 16.8 H (1.6-8.9) K/mcL BMP 07/17/17 04:48 Sodium 137 Potassium 3.5 Chloride 101 Carbon Dioxide 23 BUN 15 Creatinine 1.20 Glucose 130 H Calcium 8.0 L Urine 07/16/17 Range/Units 15:58 Urine Color Yellow (Yellow) Urine Clarity Clear (Clear) Urine pH 6.0 (5.0-8.0) pH Units Ur Specific [place] 1.029 H (1.010-1.025) Urine Protein Trace (Neg-Trace) mg/dL Urine Glucose (UA) Normal (Normal) mg/dL - ABG Interpretation ABG results: ABG ABG pH 7.39 pH Units (7.32-7.45) 07/16/17 14:58 ABG pCO2 42 mmHg (35-45) 07/16/17 14:58 ABG pO2 104 mmHg (85-104) D 07/16/17 14:58 ABG O2 Saturation 98 % (95-98) 07/16/17 14:58 PT/INR, D-dimer PT 13.3 Seconds (9.4-12.1) H 07/16/17 02:20 - Impressions Impressions Echocardiogram 07/16/17 09:00 Impressions: Normal sinus rhythm. LVEF 15%. Severe global and segmental left ventricular systolic dysfunction. Mild mitral regurgitation. Trace tricuspid regurgitation. Left Ventricular Wall Motion: Rest Echo Findings The apex, mid inferior, basal inferior, apical anterior, basal anterior, apical septal, mid inferior septal, basal inferior septal, mid anterior septal, basal anterior septal and basal inferior lateral larson were hypokinetic. The mid anterior, apical lateral, mid anterior lateral, basal anterior lateral and mid inferior lateral larson were akinetic. The apical inferior wall was not visualized. Findings: Study Quality * Technically adequate exam. ECG Findings * Normal sinus rhythm. Left Ventricle * LVEF 15%. * Moderately dilated left ventricle. * Severe global and segmental left ventricular systolic dysfunction. * Mild left ventricular diastolic dysfunction. * There is no LV thrombus. Right Ventricle * Normal right ventricular structure and function. Left Atrium * Mildly dilated left atrium. Right Atrium * Normal right atrial size. Aortic Valve * Trileaflet aortic valve. * Trileaflet aortic valve with normal function. Mitral Valve * Mild mitral regurgitation. * No mitral stenosis. Tricuspid Valve * Normal tricuspid valve structure and function. * Trace tricuspid regurgitation. Pulmonic Valve * Pulmonic valve is not well visualized. Pericardium * The pericardium appears normal. Chest X-Ray 07/17/17 01:00 IMPRESSION: Stable chest with mild vascular congestion. D/ / Poonam Temple MD / Poonam Temple MD Interpreting Provider: Poonam Temple MD Consult Discharge Plan - Plan Referrals: NONE,PCP [Primary Care Provider] -
--- NOTE | 2017-07-17 12:33 | Cardiology Progress Note ---
Date of Encounter: 07/17/17 Time of Encounter: 12:15 Assessment and Plan (1) STEMI (ST elevation myocardial infarction) Current Visit: Yes Status: Acute 1. Cardiogenic Shock, - on dopamine and Levophed, IABP at 1:1, heart rate low 100s, bp improved slightly, now hovering around 100 systolic, have been able to wean levo and dopamine some this am, proceeding very slowly as bp allows. Long conversation with and family at bedside, prognossis remains dismal. Goal is to wean presser support, DC IABP in AM if continues to improve. Briefly discussed transfer to [facility] for consideration of LVAD/bridge to transplant. Continue daily dig 0.25 q d. 2. STEMI - post PCI with CHARLES SVG-OM1, patent FUNES to LAD, severe stenosis proximal D1 with small distal distribution,off aggrastat, will continue heparin for IABP, continue , plavix, asprin. x additional 3 weeks. 3. CAD - severe three vessel starla, post CABG 4. Respiratory failure,on Vent., maintaining adequate oxygenation 5. Hypokalemia, hypomagnesemia, replacement ordered. Qualifiers: Involved coronary artery: unspecified coronary artery Qualified Code(s): I21.3 - ST elevation (STEMI) myocardial infarction of unspecified site (2) Cardiogenic shock Current Visit: Yes Status: Acute Discussion w patient/family: The assessment and plan as outlined above was discussed with the patient and/or family members who expressed understanding and agreement. All questions were answered. Thank you for involving us in the care of your patient. Please call with any questions. Subjective Principal diagnosis: Acute NC Interval history: PT admitted through ER with STEMI, cardiac arrest with CPR, underwent emergency LHC with PCI and CHARLES to SVG to OM1, IABP for cardiogenic shock. Pt sedated, intubated, with IABP, does open eyes to command, is recognizing family members at bedside, inquired about [facility] game. Objective Vital Signs, Last 4 Hours Temp Pulse Resp BP Pulse Ox 07/17/17 12:16 88 17 89/55 95 07/17/17 12:00 15 95 07/17/17 11:05 97.7 F 102 15 97/54 95 07/17/17 10:07 99 14 84/53 96 07/17/17 09:40 21 97 07/17/17 09:03 81 18 97/57 98 General: Other (INtubated, sedated. ) HEENT: Atraumatic, Normocephaly, Mucus Membranes Moist Neck: No JVD, Normal carotid pulses Cardiac: Reg Rate and Rhythm, Normal S1 and S2, No Murmur, Other (heart tones distant, audible rub from IABP, ) Lungs: Other (on vent, scattered rhonchi througout.) Neuro: Other (intubated, sedated, moves all extremities to command. ) Abdomen: Soft, Non-Tender, Other (mildly distended, heme postive return from NG. ) Skin: No rashes noted on visualized skin Musculoskeletal: No Chest Wall Tenderness Extremities: No Clubbing, No Edema, Normal Pulses Results 07/17/17 04:48 07/17/17 04:48 Lab Results 07/16/17 07/16/17 07/17/17 15:02 22:18 04:48 WBC 19.6 H Hgb 16.2 Hct 47.8 Plt Count 198 APTT 87.6 H D 68.7 H Sodium Potassium Chloride Carbon Dioxide BUN Creatinine Glucose Calcium Magnesium B-Natriuretic Peptide 07/17/17 07/17/17 04:48 04:48 WBC Hgb Hct Plt Count APTT Sodium 137 Potassium 3.5 Chloride 101 Carbon Dioxide 23 BUN 15 Creatinine 1.20 Glucose 130 H Calcium 8.0 L Magnesium 1.5 L B-Natriuretic Peptide 1058 H Consult Discharge Plan - Plan Referrals: NONE,PCP [Primary Care Provider] -
[2017-07-17] MEDS: Piperacillin/Tazobactam 3.375 GM in 0.9 % Sodium Chloride Mini Bag 100 ML IVPB SCH ×2 (16:03→23:30)
[2017-07-17] MEDS: FentaNYL (PF) 1,000 MCG in 0.9 % Sodium Chloride 80 ML IVC SCH (16:57)
[2017-07-18] MEDS: Insulin LISPRO 300 UNITS/3 ML VIAL SQ SCH ×3 (01:00→11:17)
[2017-07-18] MEDS: Norepinephrine 8 MG in D5% in Water 250 ML IVC SCH (02:38)
[2017-07-18] MEDS: Dexmedetomidine HCl 400 MCG/100 ML MLS IVC SCH ×2 (02:39→11:32)
[2017-07-18 03:20] LABS: Basophils % 0.2 %; Eosinophils % 0.1 %; Hematocrit 38.1 % (37.5-50.1); Immature Granulocytes % 0.3 % (0-4); Lymphocytes # 0.8 K/mcL (0.6-4.6); Mean Corpuscular HGB Conc 33.3 g/dL (31.6-35.5); Mean Corpuscular Hemoglobin 27.5 pg (28.0-33.3); Mean Corpuscular Volume 82.5 fL (83.0-100.0); Mean Platelet Volume 11.1 fL (9.4-12.4); Monocytes # 0.8 K/mcL (0.0-1.3); Monocytes % 5.8 %; Neutrophils # 11.5 K/mcL (1.6-8.9); Platelet Count 135 K/mcL (140-400); Red Blood Count 4.62 M/mcL (4.19-5.50); Red Cell Distribution Width 13.2 % (11.5-14.5); Segmented Neutrophils % 87.6 %
[2017-07-18 03:23] LABS: Hemoglobin 12.7 g/dL (12.9-16.9)
[2017-07-18 03:28] LABS: INR 1.3; Prothrombin Time 13.9 Seconds (9.4-12.1)
[2017-07-18 03:31] LABS: BUN/Creatinine Ratio 17 (6-26); Blood Urea Nitrogen 19 mg/dL (8-26); Calcium 7.8 mg/dL (8.6-10.8); Carbon Dioxide 30 mEq/L (19-29); Chloride 96 mEq/L (98-109); Glucose 129 mg/dL (70-99); Osmolality,Calculated 280 (280-300); Phosphorous 2.1 mg/dL (2.3-4.7); Potassium 3.4 mEq/L (3.5-4.5); Sodium 133 mEq/L (136-145); eGFR For African Americans > 60 (> 60); eGFR For Non-African Americans > 60 (> 60)
[2017-07-18] MEDS: Ipratropium/Albuterol Neb 3 ML IH SCH ×3 (04:12→15:43)
[2017-07-18 04:42] LABS: Activated Partial Thrombo Time 47.4 Seconds (26.0-36.0)
[2017-07-18] MEDS: Famotidine 20 MG/2 ML VIAL IVP SCH (05:56)
[2017-07-18] MEDS: Heparin 25,000 UNIT/500 ML D5W 25,000 UNIT/500 ML MLS IVC SCH ×2 (07:22→11:27)
[2017-07-18] MEDS: Furosemide 40 MG/4 ML VIAL IVP SCH (07:22)
[2017-07-18] MEDS: Piperacillin/Tazobactam 3.375 GM in 0.9 % Sodium Chloride Mini Bag 100 ML IVPB SCH (07:23)
[2017-07-18] MEDS: Aspirin 81 MG TAB.CHEW PO SCH (08:14)
[2017-07-18] MEDS: FentaNYL (PF) 1,000 MCG in 0.9 % Sodium Chloride 80 ML IVC SCH (08:21)
[2017-07-18] MEDS: Amiodarone Premix 360 MG/200 ML BAG IVC SCH (08:23)
[2017-07-18] MEDS ORDERED: Potassium Phosphate 44 MEQ in 0.9 % Sodium Chloride 250 ML IVPB ONE (09:38)
--- NOTE | 2017-07-18 09:46 | Pulmonology Progress Note ---
<Kyle Mcginnis - Last Filed: 07/18/17 11:33> Date of Encounter: 07/18/17 Time of Encounter: 08:15 Assessment and Plan (1) Acute respiratory failure with hypoxia Status: Acute - Intubated prior to arrival to ED and pO2 on ABG was noted to be as low as 47. - Likely secondary to cardiogenic pulmonary edema. - Improves as ABG pH 7.39, pCO2 42, pO2 104 and HCO3 25 on 07/16/17. Patient's respiratory status remains stable since. - Continue diuresis with IV Lasix. - Continue mechanical ventilation support. - Continue close monitoring. - Okay to discontinue IV Zosyn given sputum culture grew normal respiratory yohana and NGTD for blood cultures. (2) Cardiogenic shock Status: Acute - Significant hypotension with BP as low as 62/30 and heart cath found EF 10-15% . - Related to cardiac arrest from V-fib and associated STEMI. - IABP in place and cardiology on board. Patient may need transfer to tertiary center for Impella/LVAD. Appreciate cardiology input. - Continue dopamine and norepinephrine for pressure support. (3) STEMI (ST elevation myocardial infarction) Status: Acute - EKG in ED showed ST elevations in V1 & V2 with ST depression in V3, V4 and T- wave inversion in V4, V5, V6. - Status post emergent cardiac cath. - Continue aspirin, Plavix, Crestor, heparin drip. Qualifiers: Involved coronary artery: unspecified coronary artery Qualified Code(s): I21.3 - ST elevation (STEMI) myocardial infarction of unspecified site (4) Ventricular fibrillation Status: Acute - V-fib was noted per EMS arrived to the scene of cardiac arrest and patient was successfully defibrillated. (5) Cardiac arrest Status: Acute - Cardiac arrest received CPR and ROSC prior to arrival to ED. Subjective Principal diagnosis: Acute [place] Interval history: Patient was seen and examined this morning. Patient is intubated but remains alert and orient. Patient is able to follow simple commands. Patient shook his head while asking if he has any chest pain or other pain. Patient's family likes to transfer patient to [place]. Objective PUL Vital signs: Last Vital Signs Temp 99.1 F 07/18/17 08:00 Pulse 56 07/18/17 09:00 Resp 14 07/18/17 09:00 BP 70/42 07/18/17 09:00 Pulse Ox 93 07/18/17 09:00 General appearance: no acute distress, alert Eyes: nonicteric ENT: other (Intubated) Neck: supple Effort: normal Auscultation: bilateral: clear Cardiovascular: regular rate and rhythm Gastrointestinal: normoactive bowel sounds, soft, non-tender Integumentary: normal Extremities: no cyanosis, no edema Ventilator Settings Ventilator Settings: Ventilator Settings, Last 8 Hours Ventilator Mode VC+ Ventilator Mode VC+ Ventilator Mode VC+ Ventilator Mode VC+ Ventilator Mode VC+ Ventilator Mode VC+ Ventilator Mode VC+ Ventilator Mode VC+ Ventilator Mode VC+ Ventilator Mode VC+ Ventilator Mode VC+ Ventilator Tidal Volume 550 Setting Ventilator Tidal Volume 550 Setting Ventilator Tidal Volume 550 Setting Ventilator Tidal Volume 550 Setting Ventilator Tidal Volume 550 Setting Ventilator Tidal Volume 550 Setting Ventilator Tidal Volume 550 Setting Ventilator Tidal Volume 550 Setting Ventilator Tidal Volume 550 Setting Ventilator Tidal Volume 550 Setting Ventilator Tidal Volume 550 Setting Ventilator Respiratory Rate 14 Setting Ventilator Respiratory Rate 14 Setting Ventilator Respiratory Rate 14 Setting Ventilator Respiratory Rate 14 Setting Ventilator Respiratory Rate 14 Setting Ventilator Respiratory Rate 14 Setting Ventilator Respiratory Rate 14 Setting Ventilator Respiratory Rate 14 Setting Ventilator Respiratory Rate 14 Setting Ventilator Respiratory Rate 14 Setting Ventilator Respiratory Rate 14 Setting Actual Respiratory Rate 14 Actual Respiratory Rate 14 Actual Respiratory Rate 14 Actual Respiratory Rate 14 Actual Respiratory Rate 14 Actual Respiratory Rate 14 Actual Respiratory Rate 14 Actual Respiratory Rate 14 Actual Respiratory Rate 14 Actual Respiratory Rate 14 Actual Respiratory Rate 14 Positive End Expiratory 5 Pressure Positive End Expiratory 5 Pressure Positive End Expiratory 5 Pressure Positive End Expiratory 5 Pressure Positive End Expiratory 5 Pressure Positive End Expiratory 5 Pressure Positive End Expiratory 5 Pressure Positive End Expiratory 5 Pressure Positive End Expiratory 5 Pressure Positive End Expiratory 5 Pressure Positive End Expiratory 5 Pressure Peak Inspiratory Airway 34 Pressure Peak Inspiratory Airway 26 Pressure Peak Inspiratory Airway 26 Pressure Peak Inspiratory Airway 28 Pressure Peak Inspiratory Airway 26 Pressure Peak Inspiratory Airway 24 Pressure Peak Inspiratory Airway 24 Pressure Peak Inspiratory Airway 27 Pressure Peak Inspiratory Airway 24 Pressure Peak Inspiratory Airway 24 Pressure Peak Inspiratory Airway 25 Pressure Results - Laboratory Findings CBC and BMP: 07/18/17 03:10 07/18/17 03:10 ABG ABG pH 7.39 pH Units (7.32-7.45) 07/16/17 14:58 ABG pCO2 42 mmHg (35-45) 07/16/17 14:58 ABG pO2 104 mmHg (85-104) D 07/16/17 14:58 ABG O2 Saturation 98 % (95-98) 07/16/17 14:58 PT/INR, D-dimer PT 13.9 Seconds (9.4-12.1) H 07/18/17 03:10 Abnormal lab findings: Abnormal lab results WBC 13.2 K/mcL (4.3-11.1) H 07/18/17 03:10 Hgb 12.7 g/dL (12.9-16.9) L D 07/18/17 03:10 MCV 82.5 fL (83.0-100.0) L 07/18/17 03:10 MCH 27.5 pg (28.0-33.3) L 07/18/17 03:10 Plt Count 135 K/mcL (140-400) L 07/18/17 03:10 Band Neutrophils % 20.0 % (0-4) H 07/16/17 02:20 Neutrophils # 11.5 K/mcL (1.6-8.9) H 07/18/17 03:10 PT 13.9 Seconds (9.4-12.1) H 07/18/17 03:10 APTT 47.4 Seconds (26.0-36.0) H 07/18/17 03:10 ABG Total CO2 27 mEq/L (20-26) H 07/16/17 14:58 VBG pH 7.06 pH Units (7.32-7.42) L* 07/16/17 02:33 VBG pCO2 90 mmHg (41-51) H* 07/16/17 02:33 Sodium 133 mEq/L (136-145) L 07/18/17 03:10 Potassium 3.4 mEq/L (3.5-4.5) L 07/18/17 03:10 Chloride 96 mEq/L (98-109) L 07/18/17 03:10 Carbon Dioxide 30 mEq/L (19-29) H 07/18/17 03:10 Glucose 129 mg/dL (70-99) H 07/18/17 03:10 POC Glucose 132 (58-89) H 07/18/17 05:56 Calcium 7.8 mg/dL (8.6-10.8) L 07/18/17 03:10 Phosphorus 2.1 mg/dL (2.3-4.7) L 07/18/17 03:10 AST 133 Units/L (5-34) H 07/16/17 04:25 ALT 97 Units/L (0-55) H 07/16/17 04:25 Troponin I 0.07 ng/mL (0-0.03) H* 07/15/17 23:17 B-Natriuretic Peptide 1058 pg/mL (0-100) H 07/17/17 04:48 Albumin 3.4 g/dL (3.5-5.0) L 07/16/17 04:25 Ur Specific Webb 1.029 (1.010-1.025) H 07/16/17 15:58 Urine Blood Large (Negative) H 07/16/17 15:58 Urine Microscopic RBC 50-100 per hpf (0-3) H 07/16/17 15:58 Ur Squamous Epith Cells Many per lpf (None-Few) H 07/16/17 15:58 - Microbiology Findings Microbiology Findings: Microbiology, Last 48 Hours 07/16/17 15:54 Blood Culture - Preliminary Peripheral Venipuncture No growth. 07/16/17 15:57 Blood Culture - Preliminary Peripheral Venipuncture No growth. 07/16/17 17:51 Sputum Culture - Preliminary Sputum - Diagnostic Findings Chest x-ray: report reviewed, image reviewed - Clinical Findings Intake & Output: Intake & Output 07/17/17 07/18/17 07/18/17 23:59 07:59 15:59 Intake Total 918 / 918 732 / 732 589 / 589 Output Total 1300 / 1300 550 / 550 Balance -382 / -382 182 / 182 589 / 589 Consult Discharge Plan - Plan Referrals: NONE,PCP [Primary Care Provider] - <Carlos العراقي - Last Filed: 07/18/17 20:15> Date of Encounter: 07/18/17 Objective PUL Vital signs: Last Vital Signs Temp 98.5 F 07/18/17 15:00 Pulse 58 07/18/17 16:00 Resp 14 07/18/17 16:00 BP 82/51 07/18/17 16:00 Pulse Ox 98 07/18/17 16:00 Ventilator Settings Ventilator Settings: Ventilator Settings, Last 8 Hours Ventilator Mode VC+ Ventilator Mode VC+ Ventilator Mode VC+ Ventilator Mode VC+ Ventilator Mode VC+ Ventilator Mode VC+ Ventilator Tidal Volume 550 Setting Ventilator Tidal Volume 550 Setting Ventilator Tidal Volume 550 Setting Ventilator Tidal Volume 550 Setting Ventilator Tidal Volume 550 Setting Ventilator Tidal Volume 550 Setting Ventilator Respiratory Rate 14 Setting Ventilator Respiratory Rate 14 Setting Ventilator Respiratory Rate 14 Setting Ventilator Respiratory Rate 14 Setting Ventilator Respiratory Rate 14 Setting Ventilator Respiratory Rate 14 Setting Actual Respiratory Rate 14 Actual Respiratory Rate 14 Actual Respiratory Rate 14 Actual Respiratory Rate 15 Actual Respiratory Rate 14 Actual Respiratory Rate 17 Positive End Expiratory 5 Pressure Positive End Expiratory 5 Pressure Positive End Expiratory 5 Pressure Positive End Expiratory 5 Pressure Positive End Expiratory 5 Pressure Positive End Expiratory 5 Pressure Peak Inspiratory Airway 30 Pressure Peak Inspiratory Airway 25 Pressure Peak Inspiratory Airway 22 Pressure Peak Inspiratory Airway 22 Pressure Peak Inspiratory Airway 30 Pressure Peak Inspiratory Airway 27 Pressure Results - Laboratory Findings CBC and BMP: 07/18/17 03:10 07/18/17 03:10 ABG ABG pH 7.39 pH Units (7.32-7.45) 07/16/17 14:58 ABG pCO2 42 mmHg (35-45) 07/16/17 14:58 ABG pO2 104 mmHg (85-104) D 07/16/17 14:58 ABG O2 Saturation 98 % (95-98) 07/16/17 14:58 PT/INR, D-dimer PT 13.9 Seconds (9.4-12.1) H 07/18/17 03:10 Abnormal lab findings: Abnormal lab results WBC 13.2 K/mcL (4.3-11.1) H 07/18/17 03:10 Hgb 12.7 g/dL (12.9-16.9) L D 07/18/17 03:10 MCV 82.5 fL (83.0-100.0) L 07/18/17 03:10 MCH 27.5 pg (28.0-33.3) L 07/18/17 03:10 Plt Count 135 K/mcL (140-400) L 07/18/17 03:10 Band Neutrophils % 20.0 % (0-4) H 07/16/17 02:20 Neutrophils # 11.5 K/mcL (1.6-8.9) H 07/18/17 03:10 PT 13.9 Seconds (9.4-12.1) H 07/18/17 03:10 APTT 52.0 Seconds (26.0-36.0) H 07/18/17 10:45 ABG Total CO2 27 mEq/L (20-26) H 07/16/17 14:58 VBG pH 7.06 pH Units (7.32-7.42) L* 07/16/17 02:33 VBG pCO2 90 mmHg (41-51) H* 07/16/17 02:33 Sodium 133 mEq/L (136-145) L 07/18/17 03:10 Potassium 3.4 mEq/L (3.5-4.5) L 07/18/17 03:10 Chloride 96 mEq/L (98-109) L 07/18/17 03:10 Carbon Dioxide 30 mEq/L (19-29) H 07/18/17 03:10 Glucose 129 mg/dL (70-99) H 07/18/17 03:10 POC Glucose 141 (58-89) H 07/18/17 11:16 Calcium 7.8 mg/dL (8.6-10.8) L 07/18/17 03:10 Phosphorus 2.1 mg/dL (2.3-4.7) L 07/18/17 03:10 AST 133 Units/L (5-34) H 07/16/17 04:25 ALT 97 Units/L (0-55) H 07/16/17 04:25 Troponin I 0.07 ng/mL (0-0.03) H* 07/15/17 23:17 B-Natriuretic Peptide 1058 pg/mL (0-100) H 07/17/17 04:48 Albumin 3.4 g/dL (3.5-5.0) L 07/16/17 04:25 Ur Specific Webb 1.029 (1.010-1.025) H 07/16/17 15:58 Urine Blood Large (Negative) H 07/16/17 15:58 Urine Microscopic RBC 50-100 per hpf (0-3) H 07/16/17 15:58 Ur Squamous Epith Cells Many per lpf (None-Few) H 07/16/17 15:58 - Microbiology Findings Microbiology Findings: Microbiology, Last 48 Hours 07/16/17 15:54 Blood Culture - Preliminary Peripheral Venipuncture No growth. 07/16/17 15:57 Blood Culture - Preliminary Peripheral Venipuncture No growth. 07/16/17 17:51 Sputum Culture - Preliminary Sputum - Clinical Findings Intake & Output: Intake & Output 11/07/18/17 07/18/17 07:59 15:59 23:59 Intake Total 732 / 732 1158 / 1158 260 / 260 Output Total 550 / 550 800 / 800 Balance 182 / 182 358 / 358 260 / 260 - Attending Attestation I saw the patient with the resident agree with History and Physical exam findings. 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 Nutrition/GI: Patient is on trophic feeds, PPI prophylaxis Renal : UOP and renal labs reviewed Heme onc : No acute issues ID : No evidence of pneumonia will stop Zosyn Musculo skeletal / skin issues : No issues Disposition : According to patient family wishes primary cardiology team is working on transfer to [facility] . Code status: Full Code Family/POA:
[2017-07-18] MEDS ORDERED: Lacri-Lube 3.5 GM TUBE BOTH EYES PRN (10:36)
--- NOTE | 2017-07-18 10:50 | Procedure Note ---
Date of procedure: 07/16/17 Pre-op diagnosis: cardiogenic shock Post-op diagnosis: same Procedure: Left triple lumen central line - femoral vein Emergent procedure in cardiogenic shock/sp arrest patient. Using modified seldinger technique, 22cm triple lumen central line placed in left femoral vein. Sutured into place. No complications. Anesthesia: IV sedation Surgeon: Joseph Palmer Estimated blood loss (cc): 5 Pathology: none sent Disposition: ICU
--- NOTE | 2017-07-18 10:53 | Electrocardiograph Report ---
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
[2017-07-18] MEDS: Lacri-Lube 3.5 GM TUBE BOTH EYES SCH ×2 (10:55→15:10)
--- NOTE | 2017-07-18 11:31 | Electrocardiograph Report ---
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
--- NOTE | 2017-07-18 15:22 | Discharge Summary ---
Date of Encounter: 07/18/17 Time of Encounter: 15:20 - Discharge Diagnosis (1) STEMI (ST elevation myocardial infarction) Priority: Primary Status: Acute Qualifiers: Involved coronary artery: unspecified coronary artery Qualified Code(s): I21.3 - ST elevation (STEMI) myocardial infarction of unspecified site (2) Cardiogenic shock Priority: Primary Status: Acute - Discharge Medications Home Medications: Acetaminophen [Tylenol] 500 mg PO Q6HR PRN tablet 07/18/17 [Rx] Aspirin 81 mg PO DAILY tab.chew 07/18/17 [Rx] Chlorhexidine Rinse 15 ml MM BID mouthwash 07/18/17 [Rx] Clopidogrel [Plavix] 75 mg PO DAILY tablet 07/18/17 [Rx] Dextrose 50 % in Water (Syg) [Dextrose 50% (Syg)] 25 ml IVP AD PRN syringe [Rx] Dextrose Gel [Gluctose] 15 gm PO ONCE PRN gel..gram. 07/18/17 [Rx] Famotidine [Pepcid] 20 mg IVP Q12HR vial 07/18/17 [Rx] Furosemide [Lasix] 60 mg IVP BID vial 07/18/17 [Rx] Glucagon, Human Recombinant [Glucagen] 1 mg IM ONCE PRN vial 07/18/17 [Rx] Heparin 2,000 unit IVP Q6H PRN vial 07/18/17 [Rx] Heparin 4,000 unit IVP Q6HR PRN vial 07/18/17 [Rx] Insulin LISPRO [HumaLOG] 0 units SQ Q6HR vial 07/18/17 [Rx] Ipratropium/Albuterol Neb [Duoneb] 3 ml IH [id number] inhsol 07/18/17 [Rx] Lacri-Lube [Lacri-lube] 1 appl BOTH EYES Q2HR PRN tube 07/18/17 [Rx] Lacri-Lube [Lacri-lube] 1 appl BOTH EYES Q4HR tube 07/18/17 [Rx] Ondansetron [Zofran] 4 mg IVP Q6HR PRN vial 07/18/17 [Rx] Rosuvastatin [Crestor] 40 mg PO HS tablet 07/18/17 [Rx] Allergies/Adverse Reactions: 3 Allergy/AdvReac Type Severity Reaction Status Date / Time No Known Allergies Allergy Verified 07/16/17 07:15 Date of admission: 07/16/17 00:08 Primary care physician: PCP NONE Consults: 07/16/17 02:14 Consult to Critical Care [CONS] Routine Consulting Provider: Pulm Crit Care & Sleep Cookie Reason for Consult: resp failure/cardio shock Call Completed: No Consult to Hospitalist [CONS] Routine Consulting Provider: Hospitalist Emily Reason for Consult: shock/icu/ventilator Call Completed: No Discharging clinician: Shaquille Ramos Anticipated date of discharge: 07/18/17 - Patient Status Disposition: Transfer Critical Access Hosp Condition: Critical Functional capacity at discharge: bed bound Overall status at discharge: patient is not back to baseline - Discharge Instructions Follow Up With: NONE,PCP [Primary Care Provider] - - Diet and Activity Activity: increase activity as tolerated Diet: low fat, low cholesterol, low salt diet - Hospital Course Hospital course: Mr. Swift is a 71 year old male presented through ED as a STEMI, cardiac arrest with CPR, underwent emergent LHC with PCI and CHARLES to SVG and OM1, IABP for cardiogenic shock--on dopamine and Levophed, IABP at 1:1, have been able to wean levo and dopamine some, proceeding to wean slowly as bp allows. On DAPT ( ASA and Plavix), statin. No BB due to hypotension. Long conversation with and family at bedside, prognossis remains dismal. Respiratory failure,on Vent., maintaining adequate oxygenation. Family requests transfer to tertiary facility- -accepted by [facility]. Echo LVEF 15%. Severe global and segmental left ventricular systolic dysfunction, Mild mitral regurgitation, Trace tricuspid regurgitation. No ACEi due to hypotension. - Time Spent with Patient Total time spent providing and/or coordinating discharge services: Less than 30 minutes Physical Examination Vital Signs, Last 4 Hours Temp Pulse Resp BP Pulse Ox 07/18/17 15:00 98.5 F 58 14 91/52 94 07/18/17 14:00 56 14 85/50 94 07/18/17 13:09 156 85/50 95 07/18/17 13:00 62 15 86/49 97 07/18/17 12:00 59 14 78/50 94 07/18/17 11:43 17 86/52 94 Vital Signs Temp Pulse Resp BP Pulse Ox 07/18/17 15:00 98.5 F 58 14 91/52 94 07/18/17 14:00 56 14 85/50 94 07/18/17 13:09 156 85/50 95 07/18/17 13:00 62 15 86/49 97 07/18/17 12:00 59 14 78/50 94 07/18/17 11:43 17 86/52 94 07/18/17 11:00 98.7 F 60 19 86/52 97 07/18/17 10:00 61 14 78/48 95 07/18/17 09:13 14 86/52 93 07/18/17 09:00 56 14 70/42 93 07/18/17 08:00 99.1 F 62 14 84/51 96 07/18/17 07:40 14 84/51 96 07/18/17 07:15 97 07/18/17 07:00 60 14 85/51 96 07/18/17 06:00 61 14 86/51 96 07/18/17 05:00 62 14 82/48 96 07/18/17 04:12 14 110/61 96 07/18/17 04:00 99.2 F 66 18 84/51 95 07/18/17 03:00 69 16 70/45 94 07/18/17 02:39 14 108/60 95 07/18/17 02:00 65 96 99/58 96 07/18/17 01:00 69 18 86/54 97 07/18/17 00:41 14 75/59 93 07/18/17 00:00 98.9 F 65 14 90/56 94 07/17/17 23:00 64 19 87/53 95 07/17/17 22:29 19 116/60 95 07/17/17 22:00 66 16 87/55 97 07/17/17 21:00 67 16 94/54 98 07/17/17 20:52 14 110/63 96 07/17/17 20:00 67 14 88/52 96 07/17/17 19:00 64 14 86/54 96 07/17/17 18:04 92 14 88/55 91 07/17/17 17:03 80 14 103/60 96 07/17/17 16:54 14 96 07/17/17 16:15 70 14 83/56 96 07/17/17 15:38 16 97 Intake and Output 1107/18/17 07/18/17 23:59 07:59 15:59 Intake Total 918 / 918 732 / 732 1158 / 1158 Output Total 1300 / 1300 550 / 550 800 / 800 Balance -382 / -382 182 / 182 358 / 358 Intake: IV Fluids 918 / 918 732 / 732 1158 / 1158 Amiodarone Drip Premix 360mg/ 50 / 50 200 / 200 200mL 360 mg In 200 ml @ 0.5 MG /MIN 16.667 mls/hr IVC CONT ADITI Rx#:[id number] DOPamine Premix 400mg/250mL 400 250 / 250 250 / 250 500 / 500 mg In 250 ml @ 5 MCG/KG/MIN 17 .756 mls/hr IVC .Q14H5M ADITI Rx# :[id number] PRECEDEX Premix 400 mcg In 100 100 / 100 100 / 100 ml @ 0.2 MCG/KG/HR 4.735 mls/hr IVC .Q21H8M ADITI Rx#:[id number] FentaNYL (PF) 1,000 MCG In 0.9 100 / 100 100 / 100 % Sodium Chloride 80 ML @ 50 MCG/HR 5 mls/hr IVC CONT ADITI Rx #:[id number] Heparin 25,000 UNIT/500 ML D5W 200 / 200 147 / 147 153 / 153 25,000 unit In 500 ml @ 10.3 UNIT/KG/HR 20.09 mls/hr IVC . Q24H ADITI Rx#:[id number] Levophed 8 MG In Dextrose 5% 218 / 218 135 / 135 5 / 5 250 ML @ 8 MCG/MIN 15.48 mls/hr IVC CONT ADITI Rx#:[id number] Zosyn 3.375 GM In 0.9 % Sodium 100 / 100 100 / 100 100 / 100 Chloride (Mini-Bag +) 100 ML @ 25 mls/hr IVPB Q8HR ADITI Rx#: [id number] Output: Catheter 1300 / 1300 550 / 550 800 / 800 Other: Blood Glucose* 129 129 General: Other (intubated) HEENT: Atraumatic, Normocephaly, Mucus Membranes Moist Neck: Normal carotid pulses Cardiac: Reg Rate and Rhythm, Normal S1 and S2, No Murmur Lungs: Other (intubated) Neuro: Other (intubated) Abdomen: Soft, Non-Tender Skin: No rashes noted on visualized skin Musculoskeletal: No Chest Wall Tenderness Extremities: No Clubbing, No Cyanosis
[2017-07-18 16:07] VITALS: BP 82/51
[2017-07-18] MEDS ORDERED: *HR* Etomidate 20 MG/10 ML AMPUL IVP ONE (17:26)
[2017-07-18] MEDS ORDERED: Chlorhexidine Rinse 15 ML MOUTHWASH MM SCH (21:00)
--- NOTE | 2017-07-19 07:34 | Event Note ---
Date of Encounter: 07/19/17 Time of Encounter: 03:00 - Cardiology Event Note During emergent cardiac catheterization, delay in door to device time as patient was unstable in ED and required further treatment as there was instability in respiratory status of patient as he was having difficulty on the ventilator (patient received etomodate and rocuronium); additionally recommended therapeutic hypothermia initiation in ED secondary to ED reported GCS 3 in order to improve neurological prognosis. Initial EKG 2245 was concerning for STEMI but not diagnostic, as repeat EKG 2258 showed persistent/ worsening ST changes in the context of recent VF arrest, STEMI page was activated on second EKG interpretation. 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 Selective coronary angiography/bypass study - with no previous records - was completed, more difficult than average to define anatomy. Culprit for VF arrest was identified as SVG OM with collaterals to R PDA that was subtotally occluded.
== END 2017-07-18 17:27 | disposition critical access hospital (66) | DRG 270 ==
LOC: EMEROO 22:42 → ICNU 07-16 00:08
PROVIDERS: ADMIT Emergency Medicine; ATTEND Emergency Medicine